=== PATIENT | female | born 1985 | race African-American/Black ===

== ENCOUNTER 2016-10-15 10:03 | Emergency (ER) | payer BC, MEDICAID ==
[2016-10-15 10:18] VITALS: BP 117/71
--- NOTE | 2016-10-15 10:48 | ER Document Report ---
HPI - HPI Pain Level: 3 - REPRODUCTIVE LMP: 05/29/16 Reproductive: REPORTS: : - DERM Skin Color: Normal Past Medical History - Social History Smoking Status: Never Smoker Chew tobacco use (# tins/day): No Frequency of alcohol use: None Drug Abuse: None Family History: CAD, DM, Hyperlipidemia, Hypertension, Malignancy Patient has suicidal ideation: No Patient has homicidal ideation: No - Past Medical History Cardiac Medical History: Denies: Hx Congestive Heart Failure, Hx Heart Attack, Hx Hypertension Pulmonary Medical History: Reports: Hx Pneumonia - long time ago Denies: Hx Asthma, Hx Bronchitis, Hx COPD, Hx Tuberculosis Neurological Medical History: Reports: Hx Migraine. Denies: Hx Seizures Renal/ Medical History: Denies: Hx End Stage Renal Disease, Hx Kidney Stones GI Medical History: Reports: Hx Gastroesophageal Reflux Disease. Denies: Hx Cirrhosis, Hx Ulcer Musculoskeltal Medical History: Denies Hx Arthritis, Denies Hx Multiple Sclerosis Psychiatric Medical History: Denies: Hx Bipolar Disorder, Hx Depression, Hx Schizophrenia - Immunizations Hx Diphtheria, Pertussis, Tetanus Vaccination: Yes Hx Pneumococcal Vaccination: 08/07/16 Vertical Provider Document - INFECTION CONTROL TRAVEL OUTSIDE OF THE [place] IN LAST 30 DAYS: No - RESPIRATORY O2 Sat by Pulse Oximetry: 97 Course - Vital Signs Vital signs: Temp Pulse Resp BP Pulse Ox 98.9 F 96 16 117/71 97 10/15/16 10:16 10/15/16 10:16 10/15/16 10:16 10/15/16 10:16 10/15/16 10:16
--- NOTE | 2016-10-15 11:37 | ER Document Report ---
ED ENT - General Chief Complaint: Sore Throat Stated Complaint: COLD SYMPTOMS Information source: Patient, Friend TRAVEL OUTSIDE OF THE [place] IN LAST 30 DAYS: No - HPI Patient complains to provider of: Throat problem Onset: Last week Onset/Duration: Gradual Context: Allergies. denies: Injury, Recent Illness, Travel Location of pain: Sinus, Throat Associated symptoms: None - Related Data Allergies/Adverse Reactions: No Known Allergies Allergy (Verified 10/15/16 10:14) Past Medical History - Social History Smoking Status: Never Smoker Chew tobacco use (# tins/day): No Frequency of alcohol use: None Drug Abuse: None Family History: CAD, DM, Hyperlipidemia, Hypertension, Malignancy Patient has suicidal ideation: No Patient has homicidal ideation: No - Past Medical History Cardiac Medical History: Denies: Hx Congestive Heart Failure, Hx Heart Attack, Hx Hypertension Pulmonary Medical History: Reports: Hx Pneumonia - long time ago Denies: Hx Asthma, Hx Bronchitis, Hx COPD, Hx Tuberculosis Neurological Medical History: Reports: Hx Migraine. Denies: Hx Seizures Renal/ Medical History: Denies: Hx End Stage Renal Disease, Hx Kidney Stones GI Medical History: Reports: Hx Gastroesophageal Reflux Disease. Denies: Hx Cirrhosis, Hx Ulcer Musculoskeltal Medical History: Denies Hx Arthritis, Denies Hx Multiple Sclerosis Psychiatric Medical History: Denies: Hx Bipolar Disorder, Hx Depression, Hx Schizophrenia - Immunizations Hx Diphtheria, Pertussis, Tetanus Vaccination: Yes Hx Pneumococcal Vaccination: 08/07/16 Review of Systems - Review of Systems Constitutional: No symptoms reported EENT: Sinus pressure, Sinus discharge, Throat pain Cardiovascular: No symptoms reported Respiratory: No symptoms reported Gastrointestinal: No symptoms reported Genitourinary: No symptoms reported Female Genitourinary: No symptoms reported Musculoskeletal: No symptoms reported Skin: No symptoms reported Hematologic/Lymphatic: No symptoms reported Neurological/Psychological: No symptoms reported Physical Exam - Vital signs Vitals: Temp Pulse Resp BP Pulse Ox 98.9 F 96 16 117/71 97 10/15/16 10:16 10/15/16 10:16 10/15/16 10:16 10/15/16 10:16 10/15/16 10:16 Interpretation: Normal - General General appearance: Appears well, Alert - HEENT Head: Normocephalic, Atraumatic Eyes: Normal Pupils: PERRL Sinus: Mastoid, Maxillary Nasal: Purulent discharge - Respiratory Respiratory status: No respiratory distress Chest status: Nontender Breath sounds: Normal Chest palpation: Normal - Cardiovascular Rhythm: Regular Heart sounds: Normal auscultation Murmur: No - Abdominal Inspection: Normal Distension: No distension Bowel sounds: Normal Tenderness: Nontender Organomegaly: No organomegaly - Back Back: Normal, Nontender - Extremities General upper extremity: Normal inspection, Nontender, Normal color, Normal ROM , Normal temperature General lower extremity: Normal inspection, Nontender, Normal color, Normal ROM , Normal temperature, Normal weight bearing. No: Christian's sign - Neurological Neuro grossly intact: Yes Cognition: Normal Orientation: AAOx4 [place] Coma Scale Eye Opening: Spontaneous [place] Coma Scale Verbal: Oriented Cam Coma Scale Motor: Obeys Commands [place] Coma Scale Total: 15 Speech: Normal Motor strength normal: LUE, RUE, LLE, RLE Sensory: Normal - Psychological Associated symptoms: Normal affect, Normal mood - Skin Skin Temperature: Warm Skin Moisture: Dry Skin Color: Normal Course - Vital Signs Vital signs: Temp Pulse Resp BP Pulse Ox 98.9 F 96 16 117/71 97 10/15/16 10:16 10/15/16 10:16 10/15/16 10:16 10/15/16 10:16 10/15/16 10:48 Discharge - Discharge Clinical Impression: Pharyngitis Disposition: HOME, SELF-CARE Prescriptions: Amox Tr/Potassium Clavulanate [Augmentin 875-125 Tablet] 1 tab PO BID 10 Days
== END 2016-10-15 12:00 | disposition home or self-care (01) ==
LOC: ER 10:03
DX: J02.9 Acute pharyngitis, unspecified (principal)
CPT/HCPCS: 99282

== ENCOUNTER 2016-12-21 12:18 | Emergency (ER) | payer BC, MEDICAID ==
[2016-12-21] MEDS ORDERED: DIPHENHYDRAMINE HCL 25 MG CAPSULE PO ONE (12:25)
[2016-12-21] MEDS ORDERED: FAMOTIDINE 20 MG TABLET PO ONE (12:27)
--- NOTE | 2016-12-21 12:28 | ER Document Report ---
ED Medical Screen (RME) - General Stated Complaint: POSSIBLE ALLERGIC REACTION Mode of Arrival: Ambulatory Information source: Patient Notes: Patient presents to the emergency department with concerns of allergic reaction. Patient reports she went out to eat at [employer] and her face started swelling. Denies shortness of breath. Denies trouble swallowing. No apparent distress. Patient reports her face is not as swollen. Denies past medical history of allergies. I have greeted and performed a rapid initial assessment of this patient. A comprehensive ED assessment and evaluation of the patient, analysis of test results and completion of the medical decision making process will be conducted by additional ED providers. TRAVEL OUTSIDE OF THE [place] IN LAST 30 DAYS: No - Related Data Allergies/Adverse Reactions: No Known Allergies Allergy (Verified 12/21/16 12:25) Past Medical History - Past Medical History Cardiac Medical History: Denies: Hx Congestive Heart Failure, Hx Heart Attack, Hx Hypertension Pulmonary Medical History: Reports: Hx Pneumonia - long time ago Denies: Hx Asthma, Hx Bronchitis, Hx COPD, Hx Tuberculosis Neurological Medical History: Reports: Hx Migraine. Denies: Hx Seizures Renal/ Medical History: Denies: Hx End Stage Renal Disease, Hx Kidney Stones GI Medical History: Reports: Hx Gastroesophageal Reflux Disease. Denies: Hx Cirrhosis, Hx Ulcer Musculoskeltal Medical History: Denies Hx Arthritis, Denies Hx Multiple Sclerosis Psychiatric Medical History: Denies: Hx Bipolar Disorder, Hx Depression, Hx Schizophrenia - Immunizations Hx Diphtheria, Pertussis, Tetanus Vaccination: Yes
--- NOTE | 2016-12-21 12:38 | ER Document Report ---
ED Allergic Reaction - General Chief Complaint: Nausea/Vomiting Stated Complaint: POSSIBLE ALLERGIC REACTION Mode of Arrival: Ambulatory Notes: The patient is a 31-year-old female, 7 months , presents after she was eating food from [employer] and had nausea and vomiting. She also fell like her upper lip was swelling, but this resolved quickly. She is having frequent nausea and vomiting with this and is prescribed Phenergan and Zofran. She denies difficulty swallowing, shortness of breath, rash, wheezing, throat swelling, abdominal pain, leakage of fluids, vaginal bleeding or fevers. TRAVEL OUTSIDE OF THE [place] IN LAST 30 DAYS: No - Related Data Allergies/Adverse Reactions: No Known Allergies Allergy (Verified 12/21/16 12:25) Past Medical History - General Information source: Patient - Social History Smoking Status: Never Smoker Chew tobacco use (# tins/day): No Frequency of alcohol use: None Drug Abuse: None Family History: CAD, DM, Hyperlipidemia, Hypertension, Malignancy Patient has suicidal ideation: No Patient has homicidal ideation: No - Past Medical History Cardiac Medical History: Denies: Hx Congestive Heart Failure, Hx Heart Attack, Hx Hypertension Pulmonary Medical History: Reports: Hx Pneumonia - long time ago Denies: Hx Asthma, Hx Bronchitis, Hx COPD, Hx Tuberculosis Neurological Medical History: Reports: Hx Migraine. Denies: Hx Seizures Renal/ Medical History: Denies: Hx End Stage Renal Disease, Hx Kidney Stones, Hx Peritoneal Dialysis GI Medical History: Reports: Hx Gastroesophageal Reflux Disease. Denies: Hx Cirrhosis, Hx Ulcer Musculoskeltal Medical History: Denies Hx Arthritis, Denies Hx Multiple Sclerosis Psychiatric Medical History: Denies: Hx Bipolar Disorder, Hx Depression, Hx Schizophrenia - Immunizations Hx Diphtheria, Pertussis, Tetanus Vaccination: Yes Hx Pneumococcal Vaccination: 08/07/16 Review of Systems - Review of Systems Notes: REVIEW OF SYSTEMS: CONSTITUTIONAL: -fevers, -chills EENT: -eye pain, -difficulty swallowing, -nasal congestion CARDIOVASCULAR:-chest pain, -syncope. RESPIRATORY: -cough, -SOB GASTROINTESTINAL: -abdominal pain, +nausea, -vomiting, -diarrhea GENITOURINARY: -dysuria, -hematuria MUSCULOSKELETAL: -back pain, -neck pain SKIN: -rash or skin lesions. HEMATOLOGIC: -easy bruising or bleeding. LYMPHATIC: -swollen, enlarged glands. NEUROLOGICAL: -altered mental status or loss of consciousness, -headache, - neurologic symptoms PSYCHIATRIC: -anxiety, -depression. ALL OTHER SYSTEMS REVIEWED AND NEGATIVE. Physical Exam - Vital signs Vitals: Temp Pulse Resp BP Pulse Ox 98.7 F 74 20 130/74 H 100 12/21/16 13:06 12/21/16 13:06 12/21/16 13:06 12/21/16 13:06 12/21/16 13:06 - Notes Notes: PHYSICAL EXAMINATION: GENERAL: Well-appearing, well-nourished and in no acute distress. HEAD: Atraumatic, normocephalic. EYES: Pupils equal round and reactive to light, extraocular movements intact, sclera anicteric, conjunctiva are normal. ENT: nares patent, oropharynx clear without exudates. Moist mucous membranes. NECK: Normal range of motion, supple without lymphadenopathy LUNGS: Breath sounds clear to auscultation bilaterally and equal. No wheezes rales or rhonchi. HEART: Regular rate and rhythm without murmurs ABDOMEN: Soft, nontender, normoactive bowel sounds. Gravid. No guarding, no rebound. No masses appreciated. EXTREMITIES: Normal range of motion, no pitting or edema. No cyanosis. NEUROLOGICAL: Cranial nerves grossly intact. Normal speech, normal gait. Normal sensory, motor, and reflex exams. PSYCH: Normal mood, normal affect. SKIN: Warm, Dry, normal turgor, no rashes or lesions noted. Course - Re-evaluation Re-evalutation: Patient with no throat swelling, oral involvement, wheezing, shortness of breath , rash or abdominal pain to suggest anaphylaxis. Patient no longer feeling nauseous and says she will take her Phenergan at home. No complications with her at this time. Given return precautions and she understands. - Vital Signs Vital signs: Temp Pulse Resp BP Pulse Ox 98.7 F 74 20 130/74 H 100 12/21/16 13:06 12/21/16 13:06 12/21/16 13:06 12/21/16 13:06 12/21/16 13:06 Discharge - Discharge Clinical Impression: Nausea and vomiting Qualifiers: Vomiting type: unspecified Vomiting Intractability: non-intractable Qualified Code(s): R11.2 - Nausea with vomiting, unspecified Allergic reaction Qualifiers: Encounter type: initial encounter Qualified Code(s): T78.40XA - Allergy, unspecified, initial encounter Condition: Good Disposition: HOME, SELF-CARE Additional Instructions: ACUTE ALLERGIC REACTION: Your symptoms are due to an allergic reaction. Allergy can cause hives, swelling of the hands, feet, and face, hoarseness, and difficulty swallowing or breathing. It may be due to exposure to medication, animal dander, foods, infection, or insect bites. Medication is a common cause, even when prior use of this same medication caused no problems. Acute treatment may include adrenalin and antihistamines. Usually, the specific allergic agent can't be identified unless repeated episodes occur. Home treatment includes the following: (1) Stop any suspicious medications. This will be discussed with you. (2) Oral antihistamines for the next four to five days. Example, diphenhydramine (Benadryl) every four hours. (3) You may also use cimetidine (Tagamet), ranitidine (Zantac), or famotidine ( Pepcid) every four hours if diphenhydramine is not controlling itching and hives. (4) Avoid aspirin until the hives completely disappear. (5) Avoid hot baths or showers until the hives are completely gone. Call the doctor if faintness, difficulty swallowing, tightness in the chest , or wheezing occurs. STEROID MEDICATION: You have been given a medicine of the cortisone/steroid class. This medication is used to control inflammation or allergy. It is usually only given for a short period of time, until the acute process subsides. There are usually no side effects from short-term use of cortisone-like medications. Some persons feel an increased sense of well-being and are not sleepy at bedtime. Long-term use of cortisone medications is best avoided, unless required for a severe condition. If your condition does not remit, or relapses after the course of corticosteroid medication, you should consult your physician. ACID-SUPPRESSING MEDICATION: You have a prescription for medicine which reduces the stomach's secretion of acid. Examples include Zantac, Tagament, and Pepcid. These drugs are often used to allow healing of ulcers or esophagitis. They may be needed to prevent recurrence of ulcers in some patients, or to prevent damage from acid reflux in the esophagus. Take all medication as prescribed, even after the pain is gone. Regular antacids may be added as needed if you have symptoms while taking this medicine. These medications sometimes are prescribed for allergic reactions because they have anti-histaminic effects and relieve the rash and itching of the reaction. There are usually no side effects from this medication. But, in rare cases and particularly in the elderly, serious problems can occur. Contact your doctor if there is fever, rash, hallucinations, confusion, or unusual bruising. Contact your doctor at once if you develop lightheadedness, black or bloody stool, or bloody vomitus. ANTIHISTAMINES: An antihistamine has been given and/or prescribed to control your symptoms. Antihistamines are used for many reasons, including itching, watering eyes, runny nose, allergic swelling, hives, and insect stings. Antihistamines may cause drowsiness, especially with the first dose. Do not operate machinery or drive while under the effects of the medication. Other common side effects include dry mouth and eyes. In older persons, antihistamines can occasionally cause urinary retention, constipation, and trouble focusing the eyes. Do not combine the medication with alcohol, or with any other medication without talking to your doctor. USE OF DIPHENHYDRAMINE: The use of diphenhydramine (Benadryl) has been recommended to control allergic symptoms. The 25 mg strength is available over- the-counter, as well as the elixir. This antihistamine is used for many symptoms. It's useful for itching, watering eyes and nose, allergic swelling, hives, and insect stings. The medication can be repeated four times daily. Age Elixir (12.5 mg/tsp) 25 mg pill 2-3 yr 1/2 tsp 4-8 yr 1 tsp 9-14 yr 2 tsp one tab adult 1-2 tabs Antihistamines may cause drowsiness, especially with the first dose. Do not operate machinery or drive while under the effects of the medication. Do not combine the medication with alcohol, or with any other medication without talking to your doctor. FOLLOW-UP CARE: If you have been referred to a physician for follow-up care, call the physician s office for an appointment as you were instructed or within the next two days. If you experience worsening or a significant change in your symptoms, notify the physician immediately or return to the Emergency Department at any time for re-evaluation.
[2016-12-21 13:10] VITALS: BP 130/74
== END 2016-12-21 13:08 | disposition home or self-care (01) ==
LOC: ER 12:18
DX: O9A.219 Injury, poisoning and certain other consequences of external causes complicating pregnancy, unspecified trimester (principal); T78.40XA Allergy, unspecified, initial encounter; X58.XXXA Exposure to other specified factors, initial encounter; O21.9 Vomiting of pregnancy, unspecified; Z3A.00 Weeks of gestation of pregnancy not specified; Z79.899 Other long term (current) drug therapy
CPT/HCPCS: 99283

== ENCOUNTER 2017-01-21 16:18 | Outpatient (CLI) | payer BC, MEDICAID ==
[2017-01-21] MEDS ORDERED: DEXTROSE 5%-LACTATED RINGERS 1,000 ML IV PRN (17:04)
[2017-01-21 17:13] LABS: APPEARANCE,URINE SLIGHTLY-CLOUDY; BILIRUBIN,URINE NEGATIVE (NEGATIVE); GLUCOSE, URINE NEGATIVE (NEGATIVE); KETONES,URINE NEGATIVE (NEGATIVE); LEUKOCYTE ESTERASE,URINE SMALL (NEGATIVE); NITRITE,URINE NEGATIVE (NEGATIVE); PROTEIN,URINE NEGATIVE (NEGATIVE); URINE SPECIFIC GRAVITY 1.004; UROBILINOGEN,URINE NEGATIVE mg/dL (<2.0)
[2017-01-21 17:26] LABS: URINE BARBITURATES SCREEN NEGATIVE; URINE METHADONE SCREEN NEGATIVE; URINE OPIATES LOW NEGATIVE; URINE PHENCYCLIDINE SCREEN NEGATIVE
--- NOTE | 2017-01-21 18:01 | L&D Current Admission ---
Current Admit Datetime Report Generated by CPN: 01/21/2017 18:00 ADMISSION INFORMATION Chief Complaint: Nausea; Vomiting (01/21/2017 17:20:Lesia Charly, JOSE CRUZ)
--- NOTE | 2017-01-21 18:02 | L&D General Admission ---
General Admit Datetime Report Generated by CPN: 01/21/2017 18:00 INFORMATION Patient Age: 31 (08/04/2016 16:06:QS system process) EDC: 03/05/2017 00:00 (01/21/2017 17:31:Lesia Parks RN) : 2 (01/21/2017 17:31:Lesia Parks RN) Para: 0 (01/21/2017 17:31:Lesia Parks RN) Term: 0 (01/21/2017 17:31:Lesia Parks RN) : 0 (01/21/2017 17:31:Lesia Parks RN) Spontaneous Abortions: 1 (01/21/2017 17:31:Lesia Parks RN) Induced Abortions: 0 (01/21/2017 17:31:Lesia Parks RN) Livin (01/21/2017 17:31:Lesia Parks RN) CARE Primary Ict Project Manager: [employer] (01/21/2017 17:31:Lesia Parks, RN) Adequate Care: Yes (01/21/2017 17:31:Lesia Parks, RN) Height (in): 63 (01/21/2017 17:00:QS system process) ALLERGIES Medication Allergy: No (01/21/2017 17:31:Lesia Parks RN) Medication Allergies: No Known Allergies (01/21/2017) (01/21/2017 17:00:QS system process) Latex Allergy: No Latex Allergies (01/21/2017 17:31:Lesia Parks RN) COMMUNICATION Primary Language: Hebrew (01/21/2017 17:31:Lesia Parks RN) Medical Tx Preferred Language: Hebrew (01/21/2017 17:31:Lesia Parks RN) DEMOGRAPHICS Address: [address] [place] [id number] (08/04/2016 16:06:QS system process) Zipcode: [address] (08/04/2016 16:06:QS system process) Home (08/04/2016 16:06:QS system process) SSN: [id number] (08/04/2016 16:06:QS system process) Next of Kin Name: SMITHA DUGAN (08/04/2016 16:06:QS system process) Next of Kin (08/04/2016 16:06:QS system process) Next of Kin Relationship: SPO (01/21/2017 16:18:QS system process) Date of : 1985 (08/04/2016 16:06:QS system process) Marital Status: (01/21/2017 16:18:QS system process) Sex: Female (08/04/2016 16:06:QS system process) Race: (08/04/2016 16:06:QS system process) Ethnicity: Non- or (08/04/2016 16:06:QS system process) Christianity: None (01/21/2017 16:18:QS system process) DRUG AND ALCOHOL USE Alcohol: No (01/21/2017 17:31:Lesia Parks RN) Cigarettes: Never Smoker. [id number] (01/21/2017 17:31:Lesia Parks RN) Marijuana: No (01/21/2017 17:31:Lesia Parks RN) Cocaine: No (01/21/2017 17:31:Lesia Parks RN) Other Illicit Drugs: No (01/21/2017 17:31:Lesia Parks RN) VACCINE HISTORY Influenza Vaccine: Yes (01/21/2017 17:31:Lesia Parks RN) Influenza Date: 08/2016 (01/21/2017 17:31:Lesia Parks RN) Pneumococcal Vaccine: No (01/21/2017 17:31:Lesia Parks RN) Tetanus Vaccine: Yes (01/21/2017 17:31:Lesia Parks RN) Tetanus Date: 2004 (01/21/2017 17:31:Lesia Parks RN) Tdap Vaccine: Yes (01/21/2017 17:31:Lesia Parks RN) Tdap Date: 2004 (01/21/2017 17:31:Lesia Parks RN) Hepatitis B Vaccine: Yes (01/21/2017 17:31:Lesia Parks RN) Hepatitis B Vaccine Date : 2004 (01/21/2017 17:31:Lesia Parks RN) Continuing Education Specialist: [facility] (01/21/2017 17:31:Lesia Parks RN) Feeding Preference: Breast (01/21/2017 17:31:Lesia Parks RN) Benefit of Breast Feed Discussed: Yes (01/21/2017 17:31:Lesia Parks RN) Circumcision: N/A (01/21/2017 17:31:Lesia Parks RN) Classes Attended: No (01/21/2017 17:31:Lesia Parks RN) Tubal Ligation: No (01/21/2017 17:31:Lesia Parks RN) Consent: N/A (01/21/2017 17:31:Lesia Parks RN) Pain Management Plans: Epidural (01/21/2017 17:31:Lesia Parks RN) Plans for Labor and Delivery: Other, Specify (01/21/2017 17:31:Lesia Parks RN) Other Labor and Delivery Plans: Delay cord cutting (01/21/2017 17:31:Lesia Parks RN) Support Person: Smitha Dugan (01/21/2017 17:31:Lesia Parks RN) Support Person Relationship: (01/21/2017 17:31:Lesia Parks RN) Cultural/Spritual Practice: No (01/21/2017 17:31:Lesia Parks RN) Spir/Cult Dietary Needs: No (01/21/2017 17:31:Lesia Parks RN) LIVING SITUATION/DISCHARGE PLAN Living Arrangements: House (01/21/2017 17:31:Lesia Parks RN) Adequate Access to:: Electric; Heat; Refrigeration; Plumbing/Running water; Phone (01/21/2017 17:31:Lesia Parks RN) WIC Program: No (01/21/2017 17:31:Lesia Parks RN) Discharge Butcher Person: Smitha Dugan (01/21/2017 17:31:Lesia Parks RN) Person to Help after Discharge: (01/21/2017 17:31:Lesia Parks RN) Currently Using Commun Resources: No (01/21/2017 17:31:Lesia Parks RN) Specify Current Resource Used: Medicaid (01/21/2017 17:31:Lesia Parks RN) Outside Agency/Top Cutter: [facility] (01/21/2017 17:31:Lesia Parks RN) Car Seat for Discharge: Yes (01/21/2017 17:31:Lesia Parks RN) Adoption Requested: No (01/21/2017 17:31:Lesia Parks RN) Pt Contact w/infant Post : N/A (01/21/2017 17:31:Lesia Parks RN) LABS Hemoglobin: 11.7 L (08/20/2016 14:42:QS system process) Hematocrit: 35.2 L (08/20/2016 14:42:QS system process) MCV: 87 (08/20/2016 14:42:QS system process) OB/PREVIOUS HISTORY Previous Procedures: None (01/21/2017 17:31:Lesia Parks RN) Current Procedures: Ultrasound; NST (01/21/2017 17:31:Lesia Parks RN) History of Previous : No (01/21/2017 17:31:Lesia Parks RN) History of Gestational Diabetes: No (01/21/2017 17:31:Lesia Parks RN) History of PIH: No (01/21/2017 17:31:Lesia Parks RN) History of Incompetent Cervix: No (01/21/2017 17:31:Lesia Parks RN) History of Placenta Previa/Abrup: No (01/21/2017 17:31:Lesia Parks RN) History of Macrosomia: No (01/21/2017 17:31:Lesia Parsk RN) History of IUGR: No (01/21/2017 17:31:Lesia Parks RN) History of Hemorrhage: No (01/21/2017 17:31:Lesia Parks RN) History of Loss/Stillborn: No (01/21/2017 17:31:Lesia Parks RN) History of : No (01/21/2017 17:31:Lesia Parks RN) History of D (Rh) Sensitization: No (01/21/2017 17:31:Lesia Parks RN) History Recurrent Loss/Stillborn: No (01/21/2017 17:31:Lesia Parks RN) History Depression/PP Depression: No (01/21/2017 17:31:Lesia Parks RN) History of Uterine Anomaly/MARCELO: No (01/21/2017 17:31:Lesia Parks RN) History of Infertility: No (01/21/2017 17:31:Lesia Parks RN) History of ART Treatment: No (01/21/2017 17:31:Lesia Parks RN) History of MARCELO: No (01/21/2017 17:31:Lesia Parks RN) Comments Obstetrical History: G1 - SAB 2014 G2 - Current (01/21/2017 17:31:Lesia Parks RN) MEDICAL HISTORY Med Hx Diabetes: No (01/21/2017 17:31:Lesia Parks RN) Med Hx Hypertension: No (01/21/2017 17:31:Lesia Parks RN) Med Hx Heart Disease: No (01/21/2017 17:31:Lesia Parks RN) Med Hx Autoimmune Disorder: No (01/21/2017 17:31:Lesia Parks RN) Med Hx Kidney Disease/UTI: No (01/21/2017 17:31:Lesia Parks RN) Med Hx Neurologic/Epilepsy: No (01/21/2017 17:31:Lesia Parks RN) Med Hx Psychiatric Disorders: No (01/21/2017 17:31:Lesia Parks RN) Med Hx Hepatitis/Liver Disease: No (01/21/2017 17:31:Lesia Parks RN) Med Hx Varicosities/Phlebitis: No (01/21/2017 17:31:Lesia Parks RN) Med Hx Thyroid Dysfunction: No (01/21/2017 17:31:Lesia Parks RN) Med Hx Trauma/Violence: No (01/21/2017 17:31:Lesia Parks RN) Med Hx Blood Transfusion: Yes (01/21/2017 17:31:Lesia Parks RN) Med Hx Pulmonary (Asthma,TB): No (01/21/2017 17:31:Lesia Parks RN) Med Hx Breast: No (01/21/2017 17:31:Lesia Parks RN) Med Hx COOKER MECHANIC Surgery: No (01/21/2017 17:31:Lesia Parks RN) Med Hx Hospitalization/Surgery: Yes (01/21/2017 17:31:Lesia Parks RN) Med Hx Anesthetic Complications: No (01/21/2017 17:31:Lesia Parks RN) Med Hx Abnormal Pap Smear: No (01/21/2017 17:31:Lesia Parks RN) Other Medical Diseases: Yes (01/21/2017 17:31:Lesia Parks RN) Med Hx Significant Family Hx: No (01/21/2017 17:31:Lesia Parks RN) Details of Med/Surg Hx: Meningitis, Endometriosis, Pneumonia (01/21/2017 17:31:Lesia Parks RN) INFECTIOUS HISTORY Inf Hx Gonorrhea: No (01/21/2017 17:31:Lesia Parks RN) Inf Hx Chlamydia: No (01/21/2017 17:31:Lesia Parks RN) Inf Hx Syphilis: No (01/21/2017 17:31:Lesia Parks RN) Inf Hx HIV/AIDS: No (01/21/2017 17:31:Lesia Parks RN) Inf Hx Human Papilloma Virus: No (01/21/2017 17:31:Lesia Parks RN) Inf Hx Pt/Partner Genital Herpes: No (01/21/2017 17:31:Lesia Parks RN) Inf Hx Tuberculosis/Exposure: No (01/21/2017 17:31:Lesia Parks RN) Inf Hx Hepatitis B,C: No (01/21/2017 17:31:Lesia Parks RN) Inf Hx Rash or Viral Illness: No (01/21/2017 17:31:Lesia Parks RN) GENETIC HISTORY Gen Hx Age >=35 at MARIA E: No (01/21/2017 17:31:Lesia Parks RN) Gen Hx Thalassemia: No (01/21/2017 17:31:Lesia Parks RN) Gen Hx Congenital Heart Defect: No (01/21/2017 17:31:Lesia Parks RN) Gen Hx Neural Tube Defect: No (01/21/2017 17:31:Lesia Parks RN) Gen Hx Down's Syndrome: No (01/21/2017 17:31:Lesia Parks RN) Gen Hx Silvino-Sachs: No (01/21/2017 17:31:Lesia Parks RN) Gen Hx Natalie: No (01/21/2017 17:31:Lesia Parks RN) Gen Hx Familial Dysautonomia: No (01/21/2017 17:31:Lesia Parks RN) Gen Hx Sickle Cell Disease/Trait: Yes (01/21/2017 17:31:Lesia Parks RN) Gen Hx Hemophilia/Blood Disorder: No (01/21/2017 17:31:Lesia Parks RN) Gen Hx Muscular Dystrophy: No (01/21/2017 17:31:Lesia Parks RN) Gen Hx Cystic Fibrosis: No (01/21/2017 17:31:Lesia Parks RN) Gen Hx Huntingtons Chorea: No (01/21/2017 17:31:Lesia Parks RN) Gen Hx Mental Retardation/Autism: No (01/21/2017 17:31:Lesia Parks RN) Gen Hx Tested for Fragile X: No (01/21/2017 17:31:Lesia Parks RN) Gen Hx Other Inher/Chromosomal: No (01/21/2017 17:31:Lesia Parks RN) Gen Hx Maternal Metabolic DO: No (01/21/2017 17:31:Lesia Parks RN) Gen Hx Pt Father or FOB Defect: No (01/21/2017 17:31:Lesia Parks RN) Gen Hx Other Genetic History: No (01/21/2017 17:31:Lesia Parks RN) Gen Hx Drugs/Meds since LMP: No (01/21/2017 17:31:Lesai Parks RN) Details of Genetic History: Trait for sickle cell in family (01/21/2017 17:31:Lesia Parks RN)
[2017-01-21] MEDS ORDERED: FAMOTIDINE INJ/PF 20 MG/2 ML SDV IV ONE ×2 (18:08→18:12)
--- NOTE | 2017-01-21 18:39 | Non Stress Test Report ---
Non Stress Test Datetime Report Generated by CPN: 01/21/2017 18:38 DEMOGRAPHIC EGA NST: 33.6 INDICATION Indication for Study: Ordered by Provider Indication for Study (NST) Other: LC MONITORING Monitor Explained: Monitor Explained; Test Explained; Patient Verbalized Understanding Time on Monitor: 01/21/2017 16:43 Time off Monitor: 01/21/2017 18:31 NST Duration: 108 NST INTERVENTIONS NST Interventions: PO Hydration; IV Fluids; Reposition Patient Physician Notified NST: A. Emmel CNM BABY A: [id number] BABY A Movement : Present Contraction Frequency : none FHR Baseline : 130 Accelerations : 15X15 Decelerations : None Variability : Moderate 6-25bpm NST Review: Meets Criteria for Reactive NST NST Review and Verified By : Sandy Ferrer RNC NST Results: Reactive NST REPORT Report Trigger: Send Report
--- NOTE | 2017-01-21 20:49 | L&D Discharge Summary ---
OB Discharge Summary Datetime Report Generated by CPN: 01/21/2017 20:49 DISCHARGE DIAGNOSIS Diagnosis/Symptoms: Other Diagnoses/Symptoms Other: GERD Treatment/Procedures Other: Pepcid 20 mg, 1L D5LR Parity: 0 DIET/ACTIVITY/RESTRICTIONS Diet: Regular Activity: Normal Activity TEACHING/INSTRUCTIONS/REFERRALS Instructions Given To: Patient/ Instructions Understood: Patient Verbalized Understanding; Support Person Verbalized Understanding Referrals: None Educational Materials- Other: Kick Counts Dehydration DISCHARGE INFORMATION Discharged AMA: No Discharge Date/Time: 01/21/2017 18:45 Discharged To: Home Discharge Provider Name: A. Emmel CNM Accompanied By: Discharge Method: Ambulatory Condition: Stable FOLLOW UP INFORMATION Follow Up With: [facility] Follow Up On: 1 Week Follow Up Phone Number: [facility] - GENERAL INSTR-CALL PROVIDER IF: Contractions: Regular painful contractions every 5 minutes or less for one hour. Time your contractions from the beginning of one to the beginning of the next Pressure: Pressure in your vagina or lower abdomen that may feel like the baby is pushing down Gush of Fluid/Blood: Gush of fluid or blood from your vagina (it is normal to have spotting after vaginal exam or intercourse) Decreased Movement: Your baby is not moving as much as usual- 4 movements in 1 hour after drinking and resting on side Temperature: Temperature greater than 100.0(F) orally
--- NOTE | 2017-01-21 22:47 | Antepartum Discharge Summary ---
Antepartum DC Datetime Report Generated by CPN: 01/21/2017 22:45 DIET/ACTIVITY/RESTRICTIONS Diet: Regular (01/21/2017 18:45:Lesia Broman, RN) Activity: Normal Activity (01/21/2017 18:45:Lesia Broman, RN) TEACHING/INSTRUCTIONS/REFERRALS Instructions Given To: Patient/ (01/21/2017 18:45:Lesia Broman, RN) Instructions Understood: Patient Verbalized Understanding; Support Person Verbalized Understanding (01/21/2017 18:45:Lesia Broman, RN) Referrals: None (01/21/2017 18:45:Lesia Parks RN) Educational Materials- Other: Kick Counts Dehydration (01/21/2017 18:45:Lesia Parks RN) DISCHARGE INFORMATION Discharged AMA: No (01/21/2017 18:45:Lesia Parks RN) Discharge Date/Time: 01/21/2017 18:45 (01/21/2017 18:45:Lesia Parks RN) Discharged To: Home (01/21/2017 18:45:Lesia Parks RN) Discharge Provider Name: Karolina Tidwell CNM (01/21/2017 18:45:Lesia Parks RN) Accompanied By: (01/21/2017 18:45:Lesia Parks RN) Discharge Method: Ambulatory (01/21/2017 18:45:Lesia Parks RN) Condition: Stable (01/21/2017 18:45:Lesia Parks RN) FOLLOW UP INFORMATION Follow Up With: [facility] (01/21/2017 18:45:Lesia Parks RN) Follow Up On: 1 Week (01/21/2017 18:45:Lesia Parks RN) Follow Up Phone Number: [facility] - (01/21/2017 18:45:Lesia Parks RN) GENERAL INSTR-CALL PROVIDER IF: Contractions: Regular painful contractions every 5 minutes or less for one hour. Time your contractions from the beginning of one to the beginning of the next (01/21/2017 18:45:Lesia Parks RN) Pressure: Pressure in your vagina or lower abdomen that may feel like the baby is pushing down (01/21/2017 18:45:Lesia Parks RN) Gush of Fluid/Blood: Gush of fluid or blood from your vagina (it is normal to have spotting after vaginal exam or intercourse) (01/21/2017 18:45:Lesia Parks RN) Decreased Movement: Your baby is not moving as much as usual- 4 movements in 1 hour after drinking and resting on side (01/21/2017 18:45:Lesia Parks RN) Temperature: Temperature greater than 100.0(F) orally (01/21/2017 18:45:Lesia Parks RN) Urinary Output: Decreased urinary output or dark colored urine (01/21/2017 18:45:Lesia Parks RN)
--- NOTE | 2017-01-21 22:47 | L&D Current Admission ---
Current Admit Datetime Report Generated by CPN: 01/21/2017 22:45 ADMISSION INFORMATION Chief Complaint: Nausea; Vomiting (01/21/2017 17:20:Lesia Parks, JOSE CRUZ)
--- NOTE | 2017-01-21 22:47 | L&D General Admission ---
General Admit Datetime Report Generated by CPN: 01/21/2017 22:45 INFORMATION Patient Age: 31 (08/04/2016 16:06:QS system process) EDC: 03/05/2017 00:00 (01/21/2017 17:31:Lesia Parks RN) : 2 (01/21/2017 17:31:Lesia Parks RN) Para: 0 (01/21/2017 17:31:Lesia Parks RN) Term: 0 (01/21/2017 17:31:Lesia Parks RN) : 0 (01/21/2017 17:31:Lesia Parks RN) Spontaneous Abortions: 1 (01/21/2017 17:31:Lesia Parks RN) Induced Abortions: 0 (01/21/2017 17:31:Lesia Parks RN) Livin (01/21/2017 17:31:Lesia Parks RN) CARE Primary Curriculum And Assessment Coordinator: [facility] (01/21/2017 17:31:Lesia Parks RN) Adequate Care: Yes (01/21/2017 17:31:Lesia Parks RN) Height (in): 63 (01/21/2017 17:00:QS system process) Height (in): 63 (08/06/2016 12:19:QS system process) Height (in): 63 (08/04/2016 16:27:QS system process) ALLERGIES Medication Allergy: No (01/21/2017 17:31:Lesia Parks RN) Medication Allergies: No Known Allergies (01/21/2017) (01/21/2017 17:00:QS system process) Medication Allergies: No Known Allergies (12/21/2016) (01/21/2017 16:18:QS system process) Medication Allergies: No Known Allergies (07/28/2016) (08/04/2016 16:06:QS system process) Latex Allergy: No Latex Allergies (01/21/2017 17:31:Lesia Parks RN) COMMUNICATION Primary Language: Vietnamese (01/21/2017 17:31:Lesia Parks RN) Medical Tx Preferred Language: Vietnamese (01/21/2017 17:31:Lesia Parks RN) DEMOGRAPHICS Address: [address] [place] [id number] (08/04/2016 16:06:QS system process) Zipcode: [id number] (08/04/2016 16:06:QS system process) Home (08/04/2016 16:06:QS system process) SSN: [id number] (08/04/2016 16:06:QS system process) Next of Kin Name: SMITHA DUGAN (08/04/2016 16:06:QS system process) Next of Kin (08/04/2016 16:06:QS system process) Next of Kin Relationship: SPO (01/21/2017 16:18:QS system process) Next of Kin Relationship: OR (08/04/2016 16:06:QS system process) Date of : 1985 (08/04/2016 16:06:QS system process) Marital Status: (01/21/2017 16:18:QS system process) Marital Status: Single (08/04/2016 16:06:QS system process) Sex: Female (08/04/2016 16:06:QS system process) Race: (08/04/2016 16:06:QS system process) Ethnicity: Non- or (08/04/2016 16:06:QS system process) Samaritan: None (01/21/2017 16:18:QS system process) Samaritan: Other (08/04/2016 16:06:QS system process) DRUG AND ALCOHOL USE Alcohol: No (01/21/2017 17:31:Lesia Parks RN) Cigarettes: Never Smoker. [id number] (01/21/2017 17:31:Lesia Parks RN) Marijuana: No (01/21/2017 17:31:Lesia Parks RN) Cocaine: No (01/21/2017 17:31:Lesia Parks RN) Other Illicit Drugs: No (01/21/2017 17:31:Lesia Parks RN) VACCINE HISTORY Influenza Vaccine: Yes (01/21/2017 17:31:Lesia Parks RN) Influenza Date: 08/2016 (01/21/2017 17:31:Lesia Parks RN) Pneumococcal Vaccine: No (01/21/2017 17:31:Lesia Parks RN) Tetanus Vaccine: Yes (01/21/2017 17:31:Lesia Parks RN) Tetanus Date: 2004 (01/21/2017 17:31:Lesia Parks RN) Tdap Vaccine: Yes (01/21/2017 17:31:Lesia Parks RN) Tdap Date: 2004 (01/21/2017 17:31:Lesia Parks RN) Hepatitis B Vaccine: Yes (01/21/2017 17:31:Lesia Parks RN) Hepatitis B Vaccine Date : 2004 (01/21/2017 17:31:Lesia Parks RN) Can [facility]: [facility] (01/21/2017 17:31:Lesia Parks RN) Feeding Preference: Breast (01/21/2017 17:31:Lesia Parks RN) Benefit of Breast Feed Discussed: Yes (01/21/2017 17:31:Lesia Parks RN) Circumcision: N/A (01/21/2017 17:31:Lesia Parks RN) Classes Attended: No (01/21/2017 17:31:Lesia Parks RN) Tubal Ligation: No (01/21/2017 17:31:Lesia Parks RN) Tubal Authorization Signed: N/A (01/21/2017 17:31:YOLETTE Galaviz) Consent: N/A (01/21/2017 17:31:Lesia Parks RN) Consent Signed: N/A (01/21/2017 17:31:YOLETTE Galaviz) Pain Management Plans: Epidural (01/21/2017 17:31:Lesia Parks RN) Plans for Labor and Delivery: Other, Specify (01/21/2017 17:31:Lesia Parks RN) Other Labor and Delivery Plans: Delay cord cutting (01/21/2017 17:31:Lesia Parks RN) Support Person: Smitha Dugan (01/21/2017 17:31:Lesia Parks RN) Support Person Relationship: (01/21/2017 17:31:Lesia Parks RN) Cultural/Spritual Practice: No (01/21/2017 17:31:Lesia Parks RN) Spir/Cult Dietary Needs: No (01/21/2017 17:31:Lesia Parks RN) LIVING SITUATION/DISCHARGE PLAN Living Arrangements: House (01/21/2017 17:31:Lesia Parks RN) Adequate Access to:: Electric; Heat; Refrigeration; Plumbing/Running water; Phone (01/21/2017 17:31:Lesia Parks RN) WIC Program: No (01/21/2017 17:31:Lesia Parks RN) Discharge Sleeve Sewer Person: Smitha Ritchie (01/21/2017 17:31:Lesia Parks RN) Person to Help after Discharge: (01/21/2017 17:31:Lesia Parks RN) Currently Using Commun Resources: No (01/21/2017 17:31:Lesia Parks RN) Specify Current Resource Used: Medicaid (01/21/2017 17:31:Lesia Parks RN) Outside Agency/Liquefaction Plant Operator: Radha (01/21/2017 17:31:Lesia Parks RN) Car Seat for Discharge: Yes (01/21/2017 17:31:Lesia Parks RN) Adoption Requested: No (01/21/2017 17:31:Lesia Parks RN) Pt Contact w/infant Post : N/A (01/21/2017 17:31:Lesia Parks RN) LABS Blood Type: A Positive (01/21/2017 17:31:YOLETTE Galaviz) Antibody Screen: negative (01/21/2017 17:31:YOLETTE Galaviz) Hemoglobin: 11.7 L (08/20/2016 14:42:QS system process) Hemoglobin: 11.9 L (08/04/2016 17:35:QS system process) Hematocrit: 35.2 L (08/20/2016 14:42:QS system process) Hematocrit: 35.5 L (08/04/2016 17:35:QS system process) MCV: 87 (08/20/2016 14:42:QS system process) MCV: 87 (08/04/2016 17:35:QS system process) RPR/VDRL: Nonreactive (01/21/2017 17:31:YOLETTE Galaviz) Rubella: Immune (01/21/2017 17:31:YOLETTE Galaviz) OB/PREVIOUS HISTORY Previous Procedures: None (01/21/2017 17:31:Lesia Parks RN) Current Procedures: Ultrasound; NST (01/21/2017 17:31:Lesia Parks RN) History of Previous : No (01/21/2017 17:31:Lesia Parks RN) History of Gestational Diabetes: No (01/21/2017 17:31:Lesia Parks RN) History of PIH: No (01/21/2017 17:31:Lesia Parks RN) History of Incompetent Cervix: No (01/21/2017 17:31:Lesia Parks RN) History of Placenta Previa/Abrup: No (01/21/2017 17:31:Lesia Parks RN) History of Macrosomia: No (01/21/2017 17:31:Lesia Parks RN) History of IUGR: No (01/21/2017 17:31:Lesia Parks RN) History of Hemorrhage: No (01/21/2017 17:31:Lesia Parks RN) History of Loss/Stillborn: No (01/21/2017 17:31:Lesia Parks RN) History of : No (01/21/2017 17:31:Lesia Parks RN) History of D (Rh) Sensitization: No (01/21/2017 17:31:Lesia Parks RN) History Recurrent Loss/Stillborn: No (01/21/2017 17:31:Lesia Parks RN) History Depression/PP Depression: No (01/21/2017 17:31:Lesia Parks RN) History of Uterine Anomaly/MARCELO: No (01/21/2017 17:31:Lesia Parks RN) History of Infertility: No (01/21/2017 17:31:Lesia Parks RN) History of ART Treatment: No (01/21/2017 17:31:Lesia Parks RN) History of MARCELO: No (01/21/2017 17:31:Lesia Parks RN) Comments Obstetrical History: G1 - SAB 2014 G2 - Current (01/21/2017 17:31:Lesia Parks RN) MEDICAL HISTORY Med Hx Diabetes: No (01/21/2017 17:31:Lesia Parks RN) Med Hx Hypertension: No (01/21/2017 17:31:Lesia Parks RN) Med Hx Heart Disease: No (01/21/2017 17:31:Lesia Parks RN) Med Hx Autoimmune Disorder: No (01/21/2017 17:31:Lesia Parks RN) Med Hx Kidney Disease/UTI: No (01/21/2017 17:31:Lesia Parks RN) Med Hx Neurologic/Epilepsy: No (01/21/2017 17:31:Lesia Parks RN) Med Hx Psychiatric Disorders: No (01/21/2017 17:31:Lesia Parks RN) Med Hx Hepatitis/Liver Disease: No (01/21/2017 17:31:Lesia Parks RN) Med Hx Varicosities/Phlebitis: No (01/21/2017 17:31:Lesia Parks RN) Med Hx Thyroid Dysfunction: No (01/21/2017 17:31:Lesia Parks RN) Med Hx Trauma/Violence: No (01/21/2017 17:31:Lesia Parks RN) Med Hx Blood Transfusion: Yes (01/21/2017 17:31:Lesia Parks RN) Med Hx Pulmonary (Asthma,TB): No (01/21/2017 17:31:Lesia Parks RN) Med Hx Breast: No (01/21/2017 17:31:Lesia Parks RN) Med Hx [employer] Surgery: No (01/21/2017 17:31:Lesia Parks RN) Med Hx Hospitalization/Surgery: Yes (01/21/2017 17:31:Lesia Parks RN) Med Hx Anesthetic Complications: No (01/21/2017 17:31:Lesia Parks RN) Med Hx Abnormal Pap Smear: No (01/21/2017 17:31:Lesia Parks RN) Other Medical Diseases: Yes (01/21/2017 17:31:Lesia Parks RN) Med Hx Significant Family Hx: No (01/21/2017 17:31:Lesia Parks RN) Details of Med/Surg Hx: Meningitis, Endometriosis, Pneumonia (01/21/2017 17:31:Lesia Parks RN) INFECTIOUS HISTORY Inf Hx Gonorrhea: No (01/21/2017 17:31:Lesia Parks RN) Inf Hx Chlamydia: No (01/21/2017 17:31:Lesia Parks RN) Inf Hx Syphilis: No (01/21/2017 17:31:Lesia Parks RN) Inf Hx HIV/AIDS: No (01/21/2017 17:31:Lesia Parks RN) Inf Hx Human Papilloma Virus: No (01/21/2017 17:31:Lesia Parks RN) Inf Hx Pt/Partner Genital Herpes: No (01/21/2017 17:31:Lesia Parks RN) Inf Hx Tuberculosis/Exposure: No (01/21/2017 17:31:Lesia Parks RN) Inf Hx Hepatitis B,C: No (01/21/2017 17:31:Lesia Parks RN) Inf Hx Rash or Viral Illness: No (01/21/2017 17:31:Lesia Parks RN) GENETIC HISTORY Gen Hx Age >=35 at MARIA E: No (01/21/2017 17:31:Lesia Parks RN) Gen Hx Thalassemia: No (01/21/2017 17:31:Lesia Parks RN) Gen Hx Congenital Heart Defect: No (01/21/2017 17:31:Lesia Parks RN) Gen Hx Neural Tube Defect: No (01/21/2017 17:31:Lesia Parks RN) Gen Hx Down's Syndrome: No (01/21/2017 17:31:Lesia Parks RN) Gen Hx Silvino-Sachs: No (01/21/2017 17:31:Lesia Parks RN) Gen Hx Natalie: No (01/21/2017 17:31:Lesia Parks RN) Gen Hx Familial Dysautonomia: No (01/21/2017 17:31:Lesia Parks RN) Gen Hx Sickle Cell Disease/Trait: Yes (01/21/2017 17:31:Lesia Parks RN) Gen Hx Hemophilia/Blood Disorder: No (01/21/2017 17:31:Lesia Parks RN) Gen Hx Muscular Dystrophy: No (01/21/2017 17:31:Lesia Parks RN) Gen Hx Cystic Fibrosis: No (01/21/2017 17:31:Lesia Parks RN) Gen Hx Huntingtons Chorea: No (01/21/2017 17:31:Lesia Parks RN) Gen Hx Mental Retardation/Autism: No (01/21/2017 17:31:Lesia Parks RN) Gen Hx Tested for Fragile X: No (01/21/2017 17:31:Lesia Parks RN) Gen Hx Other Inher/Chromosomal: No (01/21/2017 17:31:Lesia Parks RN) Gen Hx Maternal Metabolic DO: No (01/21/2017 17:31:Lesia Parks RN) Gen Hx Pt Father or FOB Defect: No (01/21/2017 17:31:Lesia Parks RN) Gen Hx Other Genetic History: No (01/21/2017 17:31:Lesia Parks RN) Gen Hx Drugs/Meds since LMP: No (01/21/2017 17:31:Lesia Parks RN) Details of Genetic History: Trait for sickle cell in family (01/21/2017 17:31:Lesia Parks RN)
--- NOTE | 2017-01-21 22:47 | L&D Flow Sheet ---
LD Flowsheet Datetime Report Generated by CPN: 01/21/2017 22:45 Datetime: 01/21/2017 18:31 I/O Interventions: Up to BR (Lesia Broman, RN) Patient Care Comments: IV discontinued at this time, pt up to br to get dressed for discharge (Lesia Broman, RN) Datetime: 01/21/2017 18:30 Uterine Activity Monitor Mode: External (Lesia Broman, RN) Frequency (min): none (Lesia Broman, RN) Duration Criteria: Less than Two 120 Second Contractions (Lesia Broman, RN) Resting Tone (Palpate): Relaxed (Lesia Broman, RN) Assessment A Monitor Mode: External US (Lesia Broman, RN) Monitor Interventions for FHR: Ultrasound Adjusted (Lesia Broman, RN) FHR Baseline Rate : 130 (Lesia Broman, RN) Variability: Moderate 6-25 bpm (Lesia Broman, RN) Accelerations: 15X15 (Lesia Broman, RN) Decelerations: None (Lesia Broman, RN) Datetime: 01/21/2017 18:29 Patient Care Comments: A. Emmel CNM at bedside to speak with pt (Lesia Broman, RN) Datetime: 01/21/2017 18:22 NBP Sys/Mariaa/Mean (mmHg): 133 (QS system process) : 82 (QS system process) : 102 (QS system process) Pulse: 90 (QS system process) Communication LaborFlag: Labor (QS system process) Datetime: 01/21/2017 18:14 Medications Antiemetics/Antacids: Pepcid IV (mg) @ 20 (Lesia Broman, RN) Medication Comments: 20 mg Pepcid given per A. Emmel CNM (Lesia Broman, RN) Datetime: 01/21/2017 18:08 NBP Sys/Mariaa/Mean (mmHg): 127 (QS system process) : 78 (QS system process) : 97 (QS system process) Pulse: 88 (QS system process) Communication LaborFlag: Labor (QS system process) Datetime: 01/21/2017 18:00 Uterine Activity Monitor Mode: External (Lesia Broman, RN) Frequency (min): none (Lesia Broman, RN) Resting Tone (Palpate): Relaxed (Lesia Broman, RN) Assessment A Monitor Mode: External US (Lesia Broman, RN) FHR Baseline Rate : 125 (Lesia Broman, RN) Variability: Moderate 6-25 bpm (Lesia Broman, RN) Accelerations: None (Lesia Broman, RN) Decelerations: None (Lesia Broman, RN) Comments: RN at bedside adjusting US (Lesia Broman, RN) Datetime: 01/21/2017 17:53 NBP Sys/Mariaa/Mean (mmHg): 117 (QS system process) : 70 (QS system process) : 87 (QS system process) Pulse: 93 (QS system process) Communication LaborFlag: Labor (QS system process) Datetime: 01/21/2017 17:40 Patient Position/Activity: Left Lateral (Lesia Broman, RN) I/O Interventions: Up to BR (Lesia Broman, RN) Datetime: 01/21/2017 17:37 NBP Sys/Mariaa/Mean (mmHg): 130 (QS system process) : 75 (QS system process) : 97 (QS system process) Pulse: 89 (QS system process) Communication LaborFlag: Labor (QS system process) Datetime: 01/21/2017 17:30 Uterine Activity Monitor Mode: External; Palpation (Lesia Broman, RN) Frequency (min): none (Lesia Broman, RN) Resting Tone (Palpate): Relaxed (Lesia Broman, RN) Assessment A Monitor Mode: External US (Lesia Broman, RN) FHR Baseline Rate : 125 (Lesia Broman, RN) Variability: Moderate 6-25 bpm (Lesia Broman, RN) Accelerations: 15X15 (Lesia Broman, RN) Decelerations: None (Lesia Broman, RN) Datetime: 01/21/2017 17:21 Patient Care IV/Blood Work: IV Started; IV Bolus Started (Lesia Broman, RN) Patient Care Comments: D5LR infusing into 20 g placed to Right hand by S. Camp RN (Lesia Broman, RN) Datetime: 01/21/2017 17:20 Frequency (min): none (Lesia Broman, RN) Pain Pain Scale: 3 (Lesia Broman, RN) Pain Presence: Constant (Lesia Broman, RN) Pain Type: Sharp (Lesia Broman, RN) Pain Location: Head (Lesia Broman, RN) Pain Relief Measures: Comfort Measures (Lesia Broman, RN) Vaginal Exam Vaginal Bleeding: None (Lesia Broman, RN) Maternal Assessment Level of Consciousness: Fully Conscious (Lesia Broman, RN) DTR's/Clonus: DTRs 2+; No Clonus (Lesia Broman, RN) Headache: Temporal; Frontal (Lesia Broman, RN) Breath Sounds, Left: Clear and Equal (Lesia Broman, RN) Breath Sounds, Right: Clear and Equal (Lesia Broman, RN) Nausea/Vomiting: Present (Lesia Broman, RN) Communication LaborFlag: Labor (QS system process) Datetime: 01/21/2017 17:07 NBP Sys/Mariaa/Mean (mmHg): 120 (QS system process) : 71 (QS system process) : 90 (QS system process) Pulse: 83 (QS system process) Communication LaborFlag: Labor (QS system process) Datetime: 01/21/2017 17:00 Uterine Activity Monitor Mode: External; Palpation (Lesia Broman, RN) Frequency (min): none (Lesia Broman, RN) Pattern: Normal: <= 5 Contractions in 10 Minutes (Lesia Broman, RN) Resting Tone (Palpate): Relaxed (Lesia Broman, RN) Assessment A Monitor Mode: External US (Lesia Broman, RN) FHR Baseline Rate : 130 (Lesia Broman, RN) Variability: Moderate 6-25 bpm (Lesia Broman, RN) Accelerations: None (Lesia Broman, RN) Decelerations: None (Lesia Broman, RN) Datetime: 01/21/2017 16:54 Temperature (F): 98.2 (Lesia Broman, RN) Temperature (C): 36.8 (QS system process) Communication LaborFlag: Labor (QS system process) Datetime: 01/21/2017 16:53 Bedside Blood Glucose: 74 (QS system process) Patient Position/Activity: Left Tilt (Lesia Broman, RN) Patient Care Comments: BGL 74 (Lesia Broman, RN) Communication LaborFlag: Labor (QS system process) Datetime: 01/21/2017 16:45 NBP Sys/Mariaa/Mean (mmHg): 127 (QS system process) : 82 (QS system process) : 98 (QS system process) Pulse: 91 (QS system process) Communication LaborFlag: Labor (QS system process) Datetime: 01/21/2017 15:00 Vital Signs Stage of : Labor (Lesia Broman, RN)
--- NOTE | 2017-01-21 22:47 | L&D Discharge Summary ---
OB Discharge Summary Datetime Report Generated by CPN: 01/21/2017 22:45 DISCHARGE DIAGNOSIS Diagnosis/Symptoms: Other Diagnoses/Symptoms Other: GERD Treatment/Procedures Other: Pepcid 20 mg, 1L D5LR Gestation: 33.6 Parity: 0 DIET/ACTIVITY/RESTRICTIONS Diet: Regular Activity: Normal Activity TEACHING/INSTRUCTIONS/REFERRALS Instructions Given To: Patient/ Instructions Understood: Patient Verbalized Understanding; Support Person Verbalized Understanding Referrals: None Educational Materials- Other: Kick Counts Dehydration DISCHARGE INFORMATION Discharged AMA: No Discharge Date/Time: 01/21/2017 18:45 Discharged To: Home Discharge Provider Name: A. Emmel CNM Accompanied By: Discharge Method: Ambulatory Condition: Stable FOLLOW UP INFORMATION Follow Up With: [facility] Follow Up On: 1 Week Follow Up Phone Number: [facility] - GENERAL INSTR-CALL PROVIDER IF: Contractions: Regular painful contractions every 5 minutes or less for one hour. Time your contractions from the beginning of one to the beginning of the next Pressure: Pressure in your vagina or lower abdomen that may feel like the baby is pushing down Gush of Fluid/Blood: Gush of fluid or blood from your vagina (it is normal to have spotting after vaginal exam or intercourse) Decreased Movement: Your baby is not moving as much as usual- 4 movements in 1 hour after drinking and resting on side Temperature: Temperature greater than 100.0(F) orally
--- NOTE | 2017-01-22 04:47 | Antepartum Discharge Summary ---
Antepartum DC Datetime Report Generated by CPN: 01/22/2017 04:45 DIET/ACTIVITY/RESTRICTIONS Diet: Regular (01/21/2017 18:45:Lesia Broman, RN) Activity: Normal Activity (01/21/2017 18:45:Lesia Broman, RN) TEACHING/INSTRUCTIONS/REFERRALS Instructions Given To: Patient/ (01/21/2017 18:45:Lesia Broman, RN) Instructions Understood: Patient Verbalized Understanding; Support Person Verbalized Understanding (01/21/2017 18:45:Lesia Broman, RN) Referrals: None (01/21/2017 18:45:Lesia Parks RN) Educational Materials- Other: Kick Counts Dehydration (01/21/2017 18:45:Lesia Parks RN) DISCHARGE INFORMATION Discharged AMA: No (01/21/2017 18:45:Lesia Parks RN) Discharge Date/Time: 01/21/2017 18:45 (01/21/2017 18:45:Lesia Parks RN) Discharged To: Home (01/21/2017 18:45:Lesia Parks RN) Discharge Provider Name: Karolina Tidwell CNM (01/21/2017 18:45:Lesia Parks RN) Accompanied By: (01/21/2017 18:45:Lesia Parks RN) Discharge Method: Ambulatory (01/21/2017 18:45:Lesia Parks RN) Condition: Stable (01/21/2017 18:45:Lesia Parks RN) FOLLOW UP INFORMATION Follow Up With: [facility] (01/21/2017 18:45:Lesia Parks RN) Follow Up On: 1 Week (01/21/2017 18:45:Lesia Parks RN) Follow Up Phone Number: [facility] - (01/21/2017 18:45:Lesia Parks RN) GENERAL INSTR-CALL PROVIDER IF: Contractions: Regular painful contractions every 5 minutes or less for one hour. Time your contractions from the beginning of one to the beginning of the next (01/21/2017 18:45:Lesia Parks RN) Pressure: Pressure in your vagina or lower abdomen that may feel like the baby is pushing down (01/21/2017 18:45:Lesia Parks RN) Gush of Fluid/Blood: Gush of fluid or blood from your vagina (it is normal to have spotting after vaginal exam or intercourse) (01/21/2017 18:45:Lesia Parks RN) Decreased Movement: Your baby is not moving as much as usual- 4 movements in 1 hour after drinking and resting on side (01/21/2017 18:45:Lesia Parks RN) Temperature: Temperature greater than 100.0(F) orally (01/21/2017 18:45:Lesia Parks RN) Urinary Output: Decreased urinary output or dark colored urine (01/21/2017 18:45:Lesia Parks RN)
--- NOTE | 2017-01-22 04:47 | L&D Discharge Summary ---
OB Discharge Summary Datetime Report Generated by CPN: 01/22/2017 04:45 DISCHARGE DIAGNOSIS Diagnosis/Symptoms: Other Diagnoses/Symptoms Other: GERD Treatment/Procedures Other: Pepcid 20 mg, 1L D5LR Gestation: 33.6 Parity: 0 DIET/ACTIVITY/RESTRICTIONS Diet: Regular Activity: Normal Activity TEACHING/INSTRUCTIONS/REFERRALS Instructions Given To: Patient/ Instructions Understood: Patient Verbalized Understanding; Support Person Verbalized Understanding Referrals: None Educational Materials- Other: Kick Counts Dehydration DISCHARGE INFORMATION Discharged AMA: No Discharge Date/Time: 01/21/2017 18:45 Discharged To: Home Discharge Provider Name: A. Emmel CNM Accompanied By: Discharge Method: Ambulatory Condition: Stable FOLLOW UP INFORMATION Follow Up With: [facility] Follow Up On: 1 Week Follow Up Phone Number: [facility] - GENERAL INSTR-CALL PROVIDER IF: Contractions: Regular painful contractions every 5 minutes or less for one hour. Time your contractions from the beginning of one to the beginning of the next Pressure: Pressure in your vagina or lower abdomen that may feel like the baby is pushing down Gush of Fluid/Blood: Gush of fluid or blood from your vagina (it is normal to have spotting after vaginal exam or intercourse) Decreased Movement: Your baby is not moving as much as usual- 4 movements in 1 hour after drinking and resting on side Temperature: Temperature greater than 100.0(F) orally
--- NOTE | 2017-01-22 04:47 | L&D Admission Assessment ---
LD ADM ASMT Datetime Report Generated by CPN: 01/22/2017 04:45 PATIENT ASSESSMENT Assessment Type: Triage (01/21/2017 17:20:Lesia Broman, RN) WEIGHT Weight (lb): 200 (01/21/2017 17:00:QS system process) Weight (kg): 90.9 (01/21/2017 17:00:QS system process) BMI: 35.4 (01/21/2017 17:00:QS system process) PAIN Pain Scale: 3 (01/21/2017 17:20:Lesia Broman, RN) Pain Presence: Constant (01/21/2017 17:20:Lesia Broman, RN) Pain Type: Sharp (01/21/2017 17:20:Lesia Broman, RN) Pain Location: Head (01/21/2017 17:20:Lesia Broman, RN) Pain Related to Contraction: No (01/21/2017 17:20:Lesia Broman, RN) CONTRACTIONS Frequency (min): none (01/21/2017 18:30:Lesia Broman, RN) Frequency (min): none (01/21/2017 18:00:Lesia Broman, RN) Frequency (min): none (01/21/2017 17:30:Lesia Broman, RN) Frequency (min): none (01/21/2017 17:20:Lesia Broman, RN) Frequency (min): none (01/21/2017 17:00:Lesia Broman, RN) Pattern: Normal: <= 5 Contractions in 10 Minutes (01/21/2017 17:00:Lesia Broman, RN) Resting Tone [place]: Relaxed (01/21/2017 18:30:Lesia Broman, RN) Resting Tone [place]: Relaxed (01/21/2017 18:00:Lesia Broman, RN) Resting Tone [place]: Relaxed (01/21/2017 17:30:Lesia Broman, RN) Resting Tone [place]: Relaxed (01/21/2017 17:00:Lesia Broman, RN) NEURO Level of Consciousness: Fully Conscious (01/21/2017 17:20:Lesia Broman, RN) DTR's/Clonus: DTRs 2+; No Clonus (01/21/2017 17:20:Lesia Broman, RN) Headache: Temporal; Frontal (01/21/2017 17:20:Lesia Broman, RN) Dizziness: No (01/21/2017 17:20:Lesia Broman, RN) Blurred Vision: Yes (01/21/2017 17:20:Lesia Broman, RN) Extremity Numbness/Tingling : None (01/21/2017 17:20:Lesia Broman, RN) Extremity Movement: Full Range of Motion (01/21/2017 17:20:Lesia Broman, RN) CARDIOVASCULAR Heart Rhythm: Regular (01/21/2017 17:20:Lesia Parks RN) Nailbeds: [place] (01/21/2017 17:20:Lesia Parks RN) Capillary Refill: Less than 3 Seconds (01/21/2017 17:20:Lesia Parks RN) Lower Extremities Edema: Bilateral Lower Extremities (01/21/2017 17:20:Lesia Parks RN) Lower Extremities Edema Degree: 1+ (01/21/2017 17:20:Lesia Parks RN) Upper Extremities Edema: None (01/21/2017 17:20:Lesia Parks RN) Upper Extremities Edema Degree: None (01/21/2017 17:20:Lesia Parks RN) Facial Edema: None (01/21/2017 17:20:Lesia Parks RN) DVT RISK ASSESSMENT DVT Risk Age: Age less than 41 years (01/21/2017 17:20:Lesia Parks RN) DVT Risk BMI: BMI<31 (01/21/2017 17:20:Lesia Parks RN) DVT Risk Surgery: Arthroscopic Surgery (>60 minutes) (01/21/2017 17:20:Lesia Parks RN) DVT Risk Other: Women Only- or (<1 month) (01/21/2017 17:20:Lesia Parks RN) DVT Risk Total: 3 (01/21/2017 17:20:QS system process) DVT Risk Text: High Risk (20-40%)- Consider stockings, compresssion device, pharmacological therapy per hospital policy (01/21/2017 17:20:QS system process) RESPIRATORY Respiratory Effort: Unlabored; Regular Rhythm; Equal Expansion (01/21/2017 17:20:Lesia Broman, RN) Breath Sounds, Left: Clear and Equal (01/21/2017 17:20:Lesia Broman, RN) Breath Sounds, Right: Clear and Equal (01/21/2017 17:20:Lesia Broman, RN) Cough Productivity: None (01/21/2017 17:20:Lesia Broman, RN) GASTROINTESTINAL Nausea/Vomiting: Present (01/21/2017 17:20:Lesia Broman, RN) Bowel Sounds: Normoactive; All Quadrants (01/21/2017 17:20:Lesia Broman, RN) Bowel Patterns: Soft, Formed Stool (01/21/2017 17:20:Lesia Broman, RN) Hemorrhoids: None (01/21/2017 17:20:Lesia Broman, RN) Diet Type: Regular diet (01/21/2017 17:20:Lesia Broman, RN) Last Meal: 01/21/2017 14:30 (01/21/2017 17:20:Lesia Broman, RN) GENITOURINARY Bladder: Nondistended (01/21/2017 17:20:Lesia Broman, RN) Frequency of Urination: Yes (01/21/2017 17:20:Lesia Broman, RN) Urination Burning: No (01/21/2017 17:20:Lesia Broman, RN) CVA Tenderness: No (01/21/2017 17:20:Lesia Broman, RN) Vaginal Bleeding: None (01/21/2017 17:20:Lesia Broman, RN) Vaginal Discharge Amount: None (01/21/2017 17:20:Lesia Broman, RN) INTEGUMENTARY Skin Color: Normal for Race (01/21/2017 17:20:Lesia Broman, RN) Skin Temperature: Warm (01/21/2017 17:20:Lesia Broman, RN) Skin Moisture: Dry (01/21/2017 17:20:Lesia Broman, RN) Surgical Scars: right knee (01/21/2017 17:20:Lesia Broman, RN) WES SKIN ASSESSMENT Wes Scale Sensory Perception: No Impairment- Responds to verbal commands. Has no sensory deficit which would limit ability to feel or voice pain or discomfort (01/21/2017 17:20:Lesia Parks RN) Wes Scale Moisture: Rarely Moist- Skin is usually dry. Linen only requires changing at routine intervals (01/21/2017 17:20:Lesia Parks RN) Wes Scale Activity: Walks Frequently- Walks outside the room at least twice a day and inside room at least every 2 hours during the day. (01/21/2017 17:20:Lesia Parks RN) Wes Scale Mobility: No Limitations- Makes major and frequent changes in position without assistance (01/21/2017 17:20:Lesia Parks RN) Wes Scale Nutrition: Excellent- Eats most of every meal. Never refuses a meal. Usually eats a total of 4 or more servings of meat and dairy products. Occasionally eats between meals. Does not require supplementation (01/21/2017 17:20:Lesia Parks RN) Wes Scale Friction and Shear: No Apparent Problem- Moves in bed and in chair independently and has sufficient muscle strength to lift up completely during move. Maintains good position in bed or chair at all times (01/21/2017 17:20:Lesia Parks RN) Wes Scale Total: 23 (01/21/2017 17:20:QS system process) Wes Scale Risk: No Risk of Pressure Ulcer Noted at this Time (01/21/2017 17:20:QS system process) SUPPORT Family Support: Significant Other supportive, at bedside frequently (01/21/2017 17:20:Lesia Broman, RN) Emotional State: Calm/Relaxed (01/21/2017 17:20:Lesia Broman, RN) SAFETY Call [place] Within Reach: Yes (01/21/2017 17:20:Lesia Broman, RN) Side Rails Up: Yes (01/21/2017 17:20:Lesia Broman, RN) Bed Wheels Locked: Yes (01/21/2017 17:20:Lesia Broman, RN) Arm Bands Present: Yes (01/21/2017 17:20:Lesia Broman, RN) Isolation: [place] (01/21/2017 17:20:Lesia Broman, RN) FALL SCREEN Fall Risk History of Falling: (0) No (01/21/2017 17:20:Lesia Parks RN) Fall Risk Secondary Diagnosis: (0) No (01/21/2017 17:20:Lesia Parks RN) Fall Risk Ambulatory Aid: (0) None/Bedrest/Wheelchair/Nurse Assist (01/21/2017 17:20:Lesia Parks RN) Fall Risk IV Therapy: (20) Yes (01/21/2017 17:20:Lesia Parks RN) Fall Risk Gait: (0) Normal/Bedrest/Immobile (01/21/2017 17:20:Lesia Pakrs RN) Fall Risk Mental Status: (0) Oriented to Own Ability (01/21/2017 17:20:Lesia Parks RN) Fall Risk Score: 20 (01/21/2017 17:20:QS system process) Fall Risk Score Definition: No Risk: No action required (01/21/2017 17:20:QS system process) BABY A FHR Baseline Rate (bpm) Baby A: 130 (01/21/2017 18:30:Lesia Parks RN) FHR Baseline Rate (bpm) Baby A: 125 (01/21/2017 18:00:Lesia Parks RN) FHR Baseline Rate (bpm) Baby A: 125 (01/21/2017 17:30:Lesia Parks RN) FHR Baseline Rate (bpm) Baby A: 130 (01/21/2017 17:00:Lesia Parks RN) Variability Baby A: Moderate 6-25 bpm (01/21/2017 18:30:Lesia Parks RN) Variability Baby A: Moderate 6-25 bpm (01/21/2017 18:00:Lesia Parks RN) Variability Baby A: Moderate 6-25 bpm (01/21/2017 17:30:Lesia Parks RN) Variability Baby A: Moderate 6-25 bpm (01/21/2017 17:00:Lesia Parks RN) Accelerations Baby A: 15X15 (01/21/2017 18:30:Lesia Parks RN) Accelerations Baby A: None (01/21/2017 18:00:Lesia Parks RN) Accelerations Baby A: 15X15 (01/21/2017 17:30:Lesia Parks RN) Accelerations Baby A: None (01/21/2017 17:00:Lesia Parks RN) Decelerations Baby A: None (01/21/2017 18:30:Lesia Parks RN) Decelerations Baby A: None (01/21/2017 18:00:Lesia Parks RN) Decelerations Baby A: None (01/21/2017 17:30:Lesia Parks RN) Decelerations Baby A: None (01/21/2017 17:00:Lesia Parks RN)
--- NOTE | 2017-01-22 04:47 | L&D Flow Sheet ---
LD Flowsheet Datetime Report Generated by CPN: 01/22/2017 04:45 Datetime: 01/21/2017 18:31 I/O Interventions: Up to BR (Lesia Broman, RN) Patient Care Comments: IV discontinued at this time, pt up to br to get dressed for discharge (Lesia Broman, RN) Datetime: 01/21/2017 18:30 Monitor Mode: External (Lesia Broman, RN) Frequency (min): none (Lesia Broman, RN) Duration Criteria: Less than Two 120 Second Contractions (Lesia Broman, RN) Resting Tone (Palpate): Relaxed (Lesia Broman, RN) Monitor Mode: External US (Lesia Broman, RN) Monitor Interventions for FHR: Ultrasound Adjusted (Lesia Broman, RN) FHR Baseline Rate : 130 (Lesia Broman, RN) Variability: Moderate 6-25 bpm (Lesia Broman, RN) Accelerations: 15X15 (Lesia Broman, RN) Decelerations: None (Lesia Broman, RN) Datetime: 01/21/2017 18:29 Patient Care Comments: Karolian Tidwell CNM at bedside to speak with pt (Lesia Broman, RN) Datetime: 01/21/2017 18:22 NBP Sys/Mariaa/Mean (mmHg): 133 (QS system process) : 82 (QS system process) : 102 (QS system process) Pulse: 90 (QS system process) LaborFlag: Labor (QS system process) Datetime: 01/21/2017 18:14 Antiemetics/Antacids: Pepcid IV (mg) @ 20 (Lesia Broman, RN) Medication Comments: 20 mg Pepcid given per A. Emmel CNM (Lesia Broman, RN) Datetime: 01/21/2017 18:08 NBP Sys/Mariaa/Mean (mmHg): 127 (QS system process) : 78 (QS system process) : 97 (QS system process) Pulse: 88 (QS system process) LaborFlag: Labor (QS system process) Datetime: 01/21/2017 18:00 Monitor Mode: External (Lesia Broman, RN) Frequency (min): none (Lesia Broman, RN) Resting Tone ([place]pate): Relaxed (Lesia Broman, RN) Monitor Mode: External US (Lesia Broman, RN) FHR Baseline Rate : 125 (Lesia Broman, RN) Variability: Moderate 6-25 bpm (Lesia Broman, RN) Accelerations: None (Lesia Broman, RN) Decelerations: None (Lesia Broman, RN) Comments: RN at bedside adjusting US (Lesia Broman, RN) Datetime: 01/21/2017 17:53 NBP Sys/[place]/Mean (mmHg): 117 (QS system process) : 70 (QS system process) : 87 (QS system process) Pulse: 93 (QS system process) LaborFlag: Labor (QS system process) Datetime: 01/21/2017 17:40 Patient Position/Activity: Left Lateral (Lesia Broman, RN) I/O Interventions: Up to BR (Lesia Broman, RN) Datetime: 01/21/2017 17:37 NBP Sys/[place]/Mean (mmHg): 130 (QS system process) : 75 (QS system process) : 97 (QS system process) Pulse: 89 (QS system process) LaborFlag: Labor (QS system process) Datetime: 01/21/2017 17:30 Monitor Mode: External; Palpation (Lesia Broman, RN) Frequency (min): none (Lesia Broman, RN) Resting Tone (Palpate): Relaxed (Lesia Broman, RN) Monitor Mode: External US (Lesia Broman, RN) FHR Baseline Rate : 125 (Lesia Broman, RN) Variability: Moderate 6-25 bpm (Lesia Broman, RN) Accelerations: 15X15 (Lesia Broman, RN) Decelerations: None (Lesia Broman, RN) Datetime: 01/21/2017 17:21 IV/Blood Work: IV Started; IV Bolus Started (Lesia Broman, RN) Patient Care Comments: D5LR infusing into 20 g placed to Right hand by Delia Ferrer RN (Lesia Broman, RN) Datetime: 01/21/2017 17:20 Frequency (min): none (Lesia Broman, RN) Pain Scale: 3 (Lesia Broman, RN) Pain Presence: Constant (Lesia Broman, RN) Pain Type: Sharp (Lesia Broman, RN) Pain Location: Head (Lesia Broman, RN) Pain Relief Measures: Comfort Measures (Lesia Broman, RN) Vaginal Bleeding: None (Lesia Broman, RN) Level of Consciousness: Fully Conscious (Lesia Broman, RN) DTR's/Clonus: DTRs 2+; No Clonus (Lesia Broman, RN) Headache: Temporal; Frontal (Lesia Broman, RN) Breath Sounds, Left: Clear and Equal (Lesia Broman, RN) Breath Sounds, Right: Clear and Equal (Lesia Broman, RN) Nausea/Vomiting: Present (Lesia Broman, RN) LaborFlag: Labor (QS system process) Datetime: 01/21/2017 17:07 NBP Sys/[place]/Mean (mmHg): 120 (QS system process) : 71 (QS system process) : 90 (QS system process) Pulse: 83 (QS system process) LaborFlag: Labor (QS system process) Datetime: 01/21/2017 17:00 Monitor Mode: External; Palpation (Lesia Broman, RN) Frequency (min): none (Lesia Broman, RN) Pattern: Normal: <= 5 Contractions in 10 Minutes (Lesia Broman, RN) Resting Tone (Palpate): Relaxed (Lesia Broman, RN) Monitor Mode: External US (Lesia Broman, RN) FHR Baseline Rate : 130 (Lesia Broman, RN) Variability: Moderate 6-25 bpm (Lesia Broman, RN) Accelerations: None (Lesia Broman, RN) Decelerations: None (Lesia Broman, RN) Datetime: 01/21/2017 16:54 Temperature (F): 98.2 (Lesia Parks, RN) Temperature (C): 36.8 (QS system process) LaborFlag: Labor (QS system process) Datetime: 01/21/2017 16:53 Bedside Blood Glucose: 74 (QS system process) Patient Position/Activity: Left Tilt (Lesia Parks, RN) Patient Care Comments: BGL 74 (Lesia Parks, RN) LaborFlag: Labor (QS system process) Datetime: 01/21/2017 16:45 NBP Sys/Mariaa/Mean (mmHg): 127 (QS system process) : 82 (QS system process) : 98 (QS system process) Pulse: 91 (QS system process) LaborFlag: Labor (QS system process)
--- NOTE | 2017-01-22 04:47 | L&D General Admission ---
General Admit Datetime Report Generated by CPN: 01/22/2017 04:45 INFORMATION EDC: 03/05/2017 00:00 (01/21/2017 17:31:Lesia Charly, RN) : 2 (01/21/2017 17:31:Lesia Brompavel, RN) Para: 0 (01/21/2017 17:31:Lesia Brompavel, RN) Term: 0 (01/21/2017 17:31:Lesia Brompavel, RN) : 0 (01/21/2017 17:31:Lesia Broman, RN) Spontaneous Abortions: 1 (01/21/2017 17:31:Lesia Broman, RN) Induced Abortions: 0 (01/21/2017 17:31:Lesia Brompavel, RN) Livin (01/21/2017 17:31:Lesia Parks, RN) CARE Primary Firearms Expert: [facility] (01/21/2017 17:31:Lesia Parks RN) Adequate Care: Yes (01/21/2017 17:31:Lesia Parks RN) Height (in): 63 (01/21/2017 17:00:QS system process) ALLERGIES Medication Allergy: No (01/21/2017 17:31:Lesia Parks RN) Medication Allergies: No Known Allergies (01/21/2017) (01/21/2017 17:00:QS system process) Medication Allergies: No Known Allergies (12/21/2016) (01/21/2017 16:18:QS system process) Latex Allergy: No Latex Allergies (01/21/2017 17:31:Lesia Parks RN) COMMUNICATION Primary Language: Mauritanian (01/21/2017 17:31:Lesia Parks RN) Medical Tx Preferred Language: [place]itanian (01/21/2017 17:31:Lesia Parks RN) DEMOGRAPHICS Next of Kin Relationship: SPO (01/21/2017 16:18:QS system process) Marital Status: (01/21/2017 16:18:QS system process) Uatsdin: None (01/21/2017 16:18:QS system process) DRUG AND ALCOHOL USE Alcohol: No (01/21/2017 17:31:Lesia Parks RN) Cigarettes: Never Smoker. [id number] (01/21/2017 17:31:Lesia Parks RN) Marijuana: No (01/21/2017 17:31:Lesia Parks RN) Cocaine: No (01/21/2017 17:31:Lesia Parks RN) Other Illicit Drugs: No (01/21/2017 17:31:Lesia Parks RN) VACCINE HISTORY Influenza Vaccine: Yes (01/21/2017 17:31:Lesia Parks RN) Influenza Date: 08/2016 (01/21/2017 17:31:Lesia Parks RN) Pneumococcal Vaccine: No (01/21/2017 17:31:Lesia Parks RN) Tetanus Vaccine: Yes (01/21/2017 17:31:Lesia Parks RN) Tetanus Date: 2004 (01/21/2017 17:31:Lesia Parks RN) Tdap Vaccine: Yes (01/21/2017 17:31:Lesia Parks RN) Tdap Date: 2004 (01/21/2017 17:31:Lesia Parks RN) Hepatitis B Vaccine: Yes (01/21/2017 17:31:Lesia Parks RN) Hepatitis B Vaccine Date : 2004 (01/21/2017 17:31:Lesia Parks RN) Telephonic Nurse Case Manager: [facility] (01/21/2017 17:31:Lesia Parks RN) Feeding Preference: Breast (01/21/2017 17:31:Lesia Parks RN) Benefit of Breast Feed Discussed: Yes (01/21/2017 17:31:Lesia Parks RN) Circumcision: N/A (01/21/2017 17:31:Lesia Parks RN) Classes Attended: No (01/21/2017 17:31:Lesia Parks RN) Tubal Ligation: No (01/21/2017 17:31:Lesia Parks RN) Tubal Authorization Signed: N/A (01/21/2017 17:31:YOLETTE Galaviz) Consent: N/A (01/21/2017 17:31:Lesia Parks RN) Consent Signed: N/A (01/21/2017 17:31:YOLETTE Galaviz) Pain Management Plans: Epidural (01/21/2017 17:31:Lesia Parks RN) Plans for Labor and Delivery: Other, Specify (01/21/2017 17:31:Lesia Parks RN) Other Labor and Delivery Plans: Delay cord cutting (01/21/2017 17:31:Lesia Parks RN) Support Person: Christiano Dugan (01/21/2017 17:31:Lesia Parks RN) Support Person Relationship: (01/21/2017 17:31:Lesia Parks RN) Cultural/Spritual Practice: No (01/21/2017 17:31:Lesia Parks RN) Spir/Cult Dietary Needs: No (01/21/2017 17:31:Lesia Parks RN) LIVING SITUATION/DISCHARGE PLAN Living Arrangements: House (01/21/2017 17:31:Lesia Parks RN) Adequate Access to:: Electric; Heat; Refrigeration; Plumbing/Running water; Phone (01/21/2017 17:31:Lesia Parks RN) WIC Program: No (01/21/2017 17:31:Lesia Parks RN) Discharge Chief Cloth Finishing Range Operator Person: Christiano Dugan (01/21/2017 17:31:Lesia Parks RN) Person to Help after Discharge: (01/21/2017 17:31:Lesia Parks RN) Currently Using Commun Resources: No (01/21/2017 17:31:Lesia Parks RN) Specify Current Resource Used: Medicaid (01/21/2017 17:31:Lesia Parks RN) Outside Agency/Cold Mill Operator: No (01/21/2017 17:31:Lesia Parks RN) Car Seat for Discharge: Yes (01/21/2017 17:31:Lesia Parks RN) Adoption Requested: No (01/21/2017 17:31:Lesia Parks RN) Pt Contact w/ Post : N/A (01/21/2017 17:31:Lesia Parks RN) LABS Blood Type: A Positive (01/21/2017 17:31:YOLETTE Galaviz) Antibody Screen: negative (01/21/2017 17:31:YOLETTE Galaviz) Hemoglobin: 11.7 L (08/20/2016 14:42:QS system process) Hematocrit: 35.2 L (08/20/2016 14:42:QS system process) MCV: 87 (08/20/2016 14:42:QS system process) RPR/VDRL: Nonreactive (01/21/2017 17:31:YOLETTE Galaviz) Rubella: Immune (01/21/2017 17:31:[place], RNC) OB/PREVIOUS HISTORY Previous Procedures: None (01/21/2017 17:31:Lesia Parks RN) Current Procedures: Ultrasound; NST (01/21/2017 17:31:Lesia Parks RN) History of Previous : No (01/21/2017 17:31:Lesia Parks RN) History of Gestational Diabetes: No (01/21/2017 17:31:Lesia Parks RN) History of PIH: No (01/21/2017 17:31:Lesia Parks RN) History of Incompetent Cervix: No (01/21/2017 17:31:Lesia Parks RN) History of Placenta Previa/Abrup: No (01/21/2017 17:31:Lesia Parks RN) History of Macrosomia: No (01/21/2017 17:31:Lesia Parks RN) History of IUGR: No (01/21/2017 17:31:Lesia Parks RN) History of Hemorrhage: No (01/21/2017 17:31:Lesia Parks RN) History of Loss/Stillborn: No (01/21/2017 17:31:Lesia Parks RN) History of : No (01/21/2017 17:31:Lesia Parks RN) History of D (Rh) Sensitization: No (01/21/2017 17:31:Lesia Parks RN) History Recurrent Loss/Stillborn: No (01/21/2017 17:31:Lesia Parks RN) History Depression/PP Depression: No (01/21/2017 17:31:Lesia Parks RN) History of Uterine Anomaly/MARCELO: No (01/21/2017 17:31:Lesia Parks RN) History of Infertility: No (01/21/2017 17:31:Lesia Parks RN) History of ART Treatment: No (01/21/2017 17:31:Lesia Parks RN) History of MARCELO: No (01/21/2017 17:31:Lesia Parks RN) Comments Obstetrical History: G1 - SAB 2014 G2 - Current (01/21/2017 17:31:Lesia Parks RN) MEDICAL HISTORY Med Hx Diabetes: No (01/21/2017 17:31:Lesia Parks RN) Med Hx Hypertension: No (01/21/2017 17:31:Lesia Parks RN) Med Hx Heart Disease: No (01/21/2017 17:31:Lesia Parks RN) Med Hx Autoimmune Disorder: No (01/21/2017 17:31:Lesia Parks RN) Med Hx Kidney Disease/UTI: No (01/21/2017 17:31:Lesia Parks RN) Med Hx Neurologic/Epilepsy: No (01/21/2017 17:31:Lesia Parks RN) Med Hx Psychiatric Disorders: No (01/21/2017 17:31:Lesia Parks RN) Med Hx Hepatitis/Liver Disease: No (01/21/2017 17:31:Lesia Parks RN) Med Hx Varicosities/Phlebitis: No (01/21/2017 17:31:Lesia Parks RN) Med Hx Thyroid Dysfunction: No (01/21/2017 17:31:Lesia Parks RN) Med Hx Trauma/Violence: No (01/21/2017 17:31:Lesia Parks RN) Med Hx Blood Transfusion: Yes (01/21/2017 17:31:Lesia Parks RN) Med Hx Pulmonary (Asthma,TB): No (01/21/2017 17:31:Lesia Parks RN) Med Hx Breast: No (01/21/2017 17:31:Lesia Parks RN) Med Hx TROUBLE LOCATER Surgery: No (01/21/2017 17:31:Lesia Parks RN) Med Hx Hospitalization/Surgery: Yes (01/21/2017 17:31:eLsia Parks RN) Med Hx Anesthetic Complications: No (01/21/2017 17:31:Lesia Parks RN) Med Hx Abnormal Pap Smear: No (01/21/2017 17:31:Lesia Parks RN) Other Medical Diseases: Yes (01/21/2017 17:31:Lesia Parks RN) Med Hx Significant Family Hx: No (01/21/2017 17:31:Lesia Parks RN) Details of Med/Surg Hx: Meningitis, Endometriosis, Pneumonia (01/21/2017 17:31:Lesia Parks RN) INFECTIOUS HISTORY Inf Hx Gonorrhea: No (01/21/2017 17:31:Lesia Parks RN) Inf Hx Chlamydia: No (01/21/2017 17:31:Lesia Parks RN) Inf Hx Syphilis: No (01/21/2017 17:31:Lesia Parks RN) Inf Hx HIV/AIDS: No (01/21/2017 17:31:Lesia Parks RN) Inf Hx Human Papilloma Virus: No (01/21/2017 17:31:Lesia Parks RN) Inf Hx Pt/Partner Genital Herpes: No (01/21/2017 17:31:Lesia Parks RN) Inf Hx Tuberculosis/Exposure: No (01/21/2017 17:31:Lesia Parks RN) Inf Hx Hepatitis B,C: No (01/21/2017 17:31:Lesia Parks RN) Inf Hx Rash or Viral Illness: No (01/21/2017 17:31:Lesia Parks RN) GENETIC HISTORY Gen Hx Age >=35 at MARIA E: No (01/21/2017 17:31:Lesia Parks RN) Gen Hx Thalassemia: No (01/21/2017 17:31:Lesia Parks RN) Gen Hx Congenital Heart Defect: No (01/21/2017 17:31:Lesia Parks RN) Gen Hx Neural Tube Defect: No (01/21/2017 17:31:Lesia Parks RN) Gen Hx Down's Syndrome: No (01/21/2017 17:31:Lesia Parks RN) Gen Hx Silvino-Sachs: No (01/21/2017 17:31:Lesia Parks RN) Gen Hx Natalie: No (01/21/2017 17:31:Lesia Parks RN) Gen Hx Familial Dysautonomia: No (01/21/2017 17:31:Lesia Parks RN) Gen Hx Sickle Cell Disease/Trait: Yes (01/21/2017 17:31:Lesia Parks RN) Gen Hx Hemophilia/Blood Disorder: No (01/21/2017 17:31:Lesia Parks RN) Gen Hx Muscular Dystrophy: No (01/21/2017 17:31:Lesia Parks RN) Gen Hx Cystic Fibrosis: No (01/21/2017 17:31:Lesia Parks RN) Gen Hx Huntingtons Chorea: No (01/21/2017 17:31:Lesia Parks RN) Gen Hx Mental Retardation/Autism: No (01/21/2017 17:31:Lesia Parks RN) Gen Hx Tested for Fragile X: No (01/21/2017 17:31:Lesia Parks RN) Gen Hx Other Inher/Chromosomal: No (01/21/2017 17:31:Lesia Parks RN) Gen Hx Maternal Metabolic DO: No (01/21/2017 17:31:Lesia Parks RN) Gen Hx Pt Father or FOB Defect: No (01/21/2017 17:31:Lesia Parks RN) Gen Hx Other Genetic History: No (01/21/2017 17:31:Lesia Parks RN) Gen Hx Drugs/Meds since LMP: No (01/21/2017 17:31:Lesia Parks RN) Details of Genetic History: Trait for sickle cell in family (01/21/2017 17:31:Lesia Parks RN)
--- NOTE | 2017-01-22 04:47 | L&D Current Admission ---
Current Admit Datetime Report Generated by CPN: 01/22/2017 04:45 ADMISSION INFORMATION Chief Complaint: Nausea; Vomiting (01/21/2017 17:20:Lesia Parks RN)
--- NOTE | 2017-01-22 10:46 | L&D General Admission ---
General Admit Datetime Report Generated by CPN: 01/22/2017 10:45 INFORMATION Patient Age: 31 (08/04/2016 16:06:QS system process) EDC: 03/05/2017 00:00 (01/21/2017 17:31:Lesia Parks RN) : 2 (01/21/2017 17:31:Lesia Parks RN) Para: 0 (01/21/2017 17:31:Lesia Parks RN) Term: 0 (01/21/2017 17:31:Lesia Parks RN) : 0 (01/21/2017 17:31:Lesia Parks RN) Spontaneous Abortions: 1 (01/21/2017 17:31:Lesia Parks RN) Induced Abortions: 0 (01/21/2017 17:31:Lesia Parks RN) Livin (01/21/2017 17:31:Lesia Parks RN) CARE Primary Resident Care Manager: [employer] (01/21/2017 17:31:Lesia Parks RN) Adequate Care: Yes (01/21/2017 17:31:Lesia Parks RN) Height (in): 63 (01/21/2017 17:00:QS system process) Height (in): 63 (08/06/2016 12:19:QS system process) Height (in): 63 (08/04/2016 16:27:QS system process) ALLERGIES Medication Allergy: No (01/21/2017 17:31:Lesia Parks RN) Medication Allergies: No Known Allergies (01/21/2017) (01/21/2017 17:00:QS system process) Medication Allergies: No Known Allergies (12/21/2016) (01/21/2017 16:18:QS system process) Medication Allergies: No Known Allergies (07/28/2016) (08/04/2016 16:06:QS system process) Latex Allergy: No Latex Allergies (01/21/2017 17:31:Lesia Parks RN) COMMUNICATION Primary Language: Amharic (01/21/2017 17:31:Lesia Parks RN) Medical Tx Preferred Language: Amharic (01/21/2017 17:31:Lesia Parks RN) DEMOGRAPHICS Address: [address] [place] [id number] (08/04/2016 16:06:QS system process) Zipcode: [address] (08/04/2016 16:06:QS system process) Home (08/04/2016 16:06:QS system process) SSN: [id number] (08/04/2016 16:06:QS system process) Next of Kin Name: SMITHA DUGAN (08/04/2016 16:06:QS system process) Next of Kin (08/04/2016 16:06:QS system process) Next of Kin Relationship: SPO (01/21/2017 16:18:QS system process) Next of Kin Relationship: OR (08/04/2016 16:06:QS system process) Date of : 1985 (08/04/2016 16:06:QS system process) Marital Status: (01/21/2017 16:18:QS system process) Marital Status: Single (08/04/2016 16:06:QS system process) Sex: Female (08/04/2016 16:06:QS system process) Race: (08/04/2016 16:06:QS system process) Ethnicity: Non- or (08/04/2016 16:06:QS system process) Mormonism: None (01/21/2017 16:18:QS system process) Mormonism: Other (08/04/2016 16:06:QS system process) DRUG AND ALCOHOL USE Alcohol: No (01/21/2017 17:31:Lesia Parks RN) Cigarettes: Never Smoker. [id number] (01/21/2017 17:31:Lesia Parks RN) Marijuana: No (01/21/2017 17:31:Lesia Parks RN) Cocaine: No (01/21/2017 17:31:Lesia Parks RN) Other Illicit Drugs: No (01/21/2017 17:31:Lesia Parks RN) VACCINE HISTORY Influenza Vaccine: Yes (01/21/2017 17:31:Lesia Parks RN) Influenza Date: 08/2016 (01/21/2017 17:31:Lesia Parks RN) Pneumococcal Vaccine: No (01/21/2017 17:31:Lesia Parks RN) Tetanus Vaccine: Yes (01/21/2017 17:31:Lesia Parks RN) Tetanus Date: 2004 (01/21/2017 17:31:Lesia Parks RN) Tdap Vaccine: Yes (01/21/2017 17:31:Lesia Parks RN) Tdap Date: 2004 (01/21/2017 17:31:Lesia Parks RN) Hepatitis B Vaccine: Yes (01/21/2017 17:31:Lesia Parks RN) Hepatitis B Vaccine Date : 2004 (01/21/2017 17:31:Lesia Parks RN) Plc Technician: [facility] (01/21/2017 17:31:Lesia Parks RN) Feeding Preference: Breast (01/21/2017 17:31:Lesia Parks RN) Benefit of Breast Feed Discussed: Yes (01/21/2017 17:31:Lesia Parks RN) Circumcision: N/A (01/21/2017 17:31:Lesia Parks RN) Classes Attended: No (01/21/2017 17:31:Lesia Parks RN) Tubal Ligation: No (01/21/2017 17:31:Lesia Parks RN) Tubal Authorization Signed: N/A (01/21/2017 17:31:YOLETTE Galaviz) Consent: N/A (01/21/2017 17:31:Lesia Parks RN) Consent Signed: N/A (01/21/2017 17:31:YOLETTE Galaviz) Pain Management Plans: Epidural (01/21/2017 17:31:Lesia Parks RN) Plans for Labor and Delivery: Other, Specify (01/21/2017 17:31:Lesia Parks RN) Other Labor and Delivery Plans: Delay cord cutting (01/21/2017 17:31:Lesia Parks RN) Support Person: Smitha Dugan (01/21/2017 17:31:Lesia Parks RN) Support Person Relationship: (01/21/2017 17:31:Lesia Parks RN) Cultural/Spritual Practice: No (01/21/2017 17:31:Lesia Parks RN) Spir/Cult Dietary Needs: No (01/21/2017 17:31:Lesia Parks RN) LIVING SITUATION/DISCHARGE PLAN Living Arrangements: House (01/21/2017 17:31:Lesia Parks RN) Adequate Access to:: Electric; Heat; Refrigeration; Plumbing/Running water; Phone (01/21/2017 17:31:Lesia Parks RN) WIC Program: No (01/21/2017 17:31:Lesia Parks RN) Discharge Cut Off [place] Person: Smitha Ritchie (01/21/2017 17:31:Lesia Parks RN) Person to Help after Discharge: (01/21/2017 17:31:Lesia Parks RN) Currently Using Commun Resources: No (01/21/2017 17:31:Lesia Parks RN) Specify Current Resource Used: Medicaid (01/21/2017 17:31:Lesia Parks RN) Outside Agency/[employer]neyman: Radha (01/21/2017 17:31:Lesia Parks RN) Car Seat for Discharge: Yes (01/21/2017 17:31:Lesia Parks RN) Adoption Requested: No (01/21/2017 17:31:Lesia Parks RN) Pt Contact w/infant Post : N/A (01/21/2017 17:31:Lesia Parks RN) LABS Blood Type: A Positive (01/21/2017 17:31:YOLETTE Galaviz) Antibody Screen: negative (01/21/2017 17:31:YOLETTE Galaviz) Hemoglobin: 11.7 L (08/20/2016 14:42:QS system process) Hemoglobin: 11.9 L (08/04/2016 17:35:QS system process) Hematocrit: 35.2 L (08/20/2016 14:42:QS system process) Hematocrit: 35.5 L (08/04/2016 17:35:QS system process) MCV: 87 (08/20/2016 14:42:QS system process) MCV: 87 (08/04/2016 17:35:QS system process) RPR/VDRL: Nonreactive (01/21/2017 17:31:YOLETTE Galaviz) Rubella: Immune (01/21/2017 17:31:YOLETTE Galaviz) OB/PREVIOUS HISTORY Previous Procedures: None (01/21/2017 17:31:Lesia Parks RN) Current Procedures: Ultrasound; NST (01/21/2017 17:31:Lesia Parks RN) History of Previous : No (01/21/2017 17:31:Lesia Parks RN) History of Gestational Diabetes: No (01/21/2017 17:31:Lesia Parks RN) History of PIH: No (01/21/2017 17:31:Lesia Parks RN) History of Incompetent Cervix: No (01/21/2017 17:31:Lesia Parks RN) History of Placenta Previa/Abrup: No (01/21/2017 17:31:Lesia Parks RN) History of Macrosomia: No (01/21/2017 17:31:Lesia Parks RN) History of IUGR: No (01/21/2017 17:31:Lesia Parks RN) History of Hemorrhage: No (01/21/2017 17:31:Lesia Parks RN) History of Loss/Stillborn: No (01/21/2017 17:31:Lesia Parks RN) History of : No (01/21/2017 17:31:Lesia Parks RN) History of D (Rh) Sensitization: No (01/21/2017 17:31:Lesia Parks RN) History Recurrent Loss/Stillborn: No (01/21/2017 17:31:Lesia Parks RN) History Depression/PP Depression: No (01/21/2017 17:31:Lesia Parks RN) History of Uterine Anomaly/MARCELO: No (01/21/2017 17:31:Lesia Parks RN) History of Infertility: No (01/21/2017 17:31:Lesia Parks RN) History of ART Treatment: No (01/21/2017 17:31:Lesia Parks RN) History of MARCELO: No (01/21/2017 17:31:Lesia Parks RN) Comments Obstetrical History: G1 - SAB 2014 G2 - Current (01/21/2017 17:31:Lesia Parks RN) MEDICAL HISTORY Med Hx Diabetes: No (01/21/2017 17:31:Lesia Parks RN) Med Hx Hypertension: No (01/21/2017 17:31:Lesia Parks RN) Med Hx Heart Disease: No (01/21/2017 17:31:Lesia Parks RN) Med Hx Autoimmune Disorder: No (01/21/2017 17:31:Lesia Parks RN) Med Hx Kidney Disease/UTI: No (01/21/2017 17:31:Lesia Parks RN) Med Hx Neurologic/Epilepsy: No (01/21/2017 17:31:Lesia Parks RN) Med Hx Psychiatric Disorders: No (01/21/2017 17:31:Lesia Parks RN) Med Hx Hepatitis/Liver Disease: No (01/21/2017 17:31:Lesia Parks RN) Med Hx Varicosities/Phlebitis: No (01/21/2017 17:31:Lesia Parks RN) Med Hx Thyroid Dysfunction: No (01/21/2017 17:31:Lesia Parks RN) Med Hx Trauma/Violence: No (01/21/2017 17:31:Lesia Parks RN) Med Hx Blood Transfusion: Yes (01/21/2017 17:31:Lesia Parks RN) Med Hx Pulmonary (Asthma,TB): No (01/21/2017 17:31:Lesia Parks RN) Med Hx Breast: No (01/21/2017 17:31:Lesia Parks RN) Med Hx FRONT OFFICE SPEC Surgery: No (01/21/2017 17:31:Lesia Parks RN) Med Hx Hospitalization/Surgery: Yes (01/21/2017 17:31:Lesia Parks RN) Med Hx Anesthetic Complications: No (01/21/2017 17:31:Lesia Parks RN) Med Hx Abnormal Pap Smear: No (01/21/2017 17:31:Lesia Parks RN) Other Medical Diseases: Yes (01/21/2017 17:31:Lesia Parks RN) Med Hx Significant Family Hx: No (01/21/2017 17:31:Lesia Parks RN) Details of Med/Surg Hx: Meningitis, Endometriosis, Pneumonia (01/21/2017 17:31:Lesia Parks RN) INFECTIOUS HISTORY Inf Hx Gonorrhea: No (01/21/2017 17:31:Lesia Parks RN) Inf Hx Chlamydia: No (01/21/2017 17:31:Lesia Parks RN) Inf Hx Syphilis: No (01/21/2017 17:31:Lesia Parks RN) Inf Hx HIV/AIDS: No (01/21/2017 17:31:Lesia Parks RN) Inf Hx Human Papilloma Virus: No (01/21/2017 17:31:Lesia Parks RN) Inf Hx Pt/Partner Genital Herpes: No (01/21/2017 17:31:Lesia Parks RN) Inf Hx Tuberculosis/Exposure: No (01/21/2017 17:31:Lesia Parks RN) Inf Hx Hepatitis B,C: No (01/21/2017 17:31:Lesia Parks RN) Inf Hx Rash or Viral Illness: No (01/21/2017 17:31:Lesia Parks RN) GENETIC HISTORY Gen Hx Age >=35 at MARIA E: No (01/21/2017 17:31:Lesia Parks RN) Gen Hx Thalassemia: No (01/21/2017 17:31:Lesia Parks RN) Gen Hx Congenital Heart Defect: No (01/21/2017 17:31:Lesia Parks RN) Gen Hx Neural Tube Defect: No (01/21/2017 17:31:Lesia Parks RN) Gen Hx Down's Syndrome: No (01/21/2017 17:31:Lesia Parks RN) Gen Hx Silvino-Sachs: No (01/21/2017 17:31:Lesia Parks RN) Gen Hx Natalie: No (01/21/2017 17:31:Lesia Parks RN) Gen Hx Familial Dysautonomia: No (01/21/2017 17:31:Lesia Parks RN) Gen Hx Sickle Cell Disease/Trait: Yes (01/21/2017 17:31:Lesia Parks RN) Gen Hx Hemophilia/Blood Disorder: No (01/21/2017 17:31:Lesia Parks RN) Gen Hx Muscular Dystrophy: No (01/21/2017 17:31:Lesia Parks RN) Gen Hx Cystic Fibrosis: No (01/21/2017 17:31:Lesia Parks RN) Gen Hx Huntingtons Chorea: No (01/21/2017 17:31:Lesia Parks RN) Gen Hx Mental Retardation/Autism: No (01/21/2017 17:31:Lesia Parks RN) Gen Hx Tested for Fragile X: No (01/21/2017 17:31:Lesia Parks RN) Gen Hx Other Inher/Chromosomal: No (01/21/2017 17:31:Lesia Parks RN) Gen Hx Maternal Metabolic DO: No (01/21/2017 17:31:Lesia Parks RN) Gen Hx Pt Father or FOB Defect: No (01/21/2017 17:31:Lesia Parks RN) Gen Hx Other Genetic History: No (01/21/2017 17:31:Lesia Parks RN) Gen Hx Drugs/Meds since LMP: No (01/21/2017 17:31:Lesia Parks RN) Details of Genetic History: Trait for sickle cell in family (01/21/2017 17:31:Lesia Parks RN)
--- NOTE | 2017-01-22 10:46 | L&D Current Admission ---
Current Admit Datetime Report Generated by CPN: 01/22/2017 10:45 ADMISSION INFORMATION Chief Complaint: Nausea; Vomiting (01/21/2017 17:20:Lesia Parks, JOSE CRUZ)
--- NOTE | 2017-01-22 10:46 | L&D Discharge Summary ---
OB Discharge Summary Datetime Report Generated by CPN: 01/22/2017 10:45 DISCHARGE DIAGNOSIS Diagnosis/Symptoms: Other Diagnoses/Symptoms Other: GERD Treatment/Procedures Other: Pepcid 20 mg, 1L D5LR Gestation: 33.6 Parity: 0 DIET/ACTIVITY/RESTRICTIONS Diet: Regular Activity: Normal Activity TEACHING/INSTRUCTIONS/REFERRALS Instructions Given To: Patient/ Instructions Understood: Patient Verbalized Understanding; Support Person Verbalized Understanding Referrals: None Educational Materials- Other: Kick Counts Dehydration DISCHARGE INFORMATION Discharged AMA: No Discharge Date/Time: 01/21/2017 18:45 Discharged To: Home Discharge Provider Name: A. Emmel CNM Accompanied By: Discharge Method: Ambulatory Condition: Stable FOLLOW UP INFORMATION Follow Up With: [facility] Follow Up On: 1 Week Follow Up Phone Number: [facility] - GENERAL INSTR-CALL PROVIDER IF: Contractions: Regular painful contractions every 5 minutes or less for one hour. Time your contractions from the beginning of one to the beginning of the next Pressure: Pressure in your vagina or lower abdomen that may feel like the baby is pushing down Gush of Fluid/Blood: Gush of fluid or blood from your vagina (it is normal to have spotting after vaginal exam or intercourse) Decreased Movement: Your baby is not moving as much as usual- 4 movements in 1 hour after drinking and resting on side Temperature: Temperature greater than 100.0(F) orally
--- NOTE | 2017-01-22 10:46 | Antepartum Discharge Summary ---
Antepartum DC Datetime Report Generated by CPN: 01/22/2017 10:45 DIET/ACTIVITY/RESTRICTIONS Diet: Regular (01/21/2017 18:45:Lesia Broman, RN) Activity: Normal Activity (01/21/2017 18:45:Lesia Broman, RN) TEACHING/INSTRUCTIONS/REFERRALS Instructions Given To: Patient/ (01/21/2017 18:45:Lesia Broman, RN) Instructions Understood: Patient Verbalized Understanding; Support Person Verbalized Understanding (01/21/2017 18:45:Lesia Broman, RN) Referrals: None (01/21/2017 18:45:Lesia Parks RN) Educational Materials- Other: Kick Counts Dehydration (01/21/2017 18:45:Lesia Parks RN) DISCHARGE INFORMATION Discharged AMA: No (01/21/2017 18:45:Lesia Parks RN) Discharge Date/Time: 01/21/2017 18:45 (01/21/2017 18:45:Lesia Parks RN) Discharged To: Home (01/21/2017 18:45:Lesia Parks RN) Discharge Provider Name: Karolina Tidwell CNM (01/21/2017 18:45:Lesia Parks RN) Accompanied By: (01/21/2017 18:45:Lesia Parks RN) Discharge Method: Ambulatory (01/21/2017 18:45:Lesia Parks RN) Condition: Stable (01/21/2017 18:45:Lesia Parks RN) FOLLOW UP INFORMATION Follow Up With: [facility] (01/21/2017 18:45:Lesia Parks RN) Follow Up On: 1 Week (01/21/2017 18:45:Lesia Parks RN) Follow Up Phone Number: [facility] - (01/21/2017 18:45:Lesia Parks RN) GENERAL INSTR-CALL PROVIDER IF: Contractions: Regular painful contractions every 5 minutes or less for one hour. Time your contractions from the beginning of one to the beginning of the next (01/21/2017 18:45:Lesia Parks RN) Pressure: Pressure in your vagina or lower abdomen that may feel like the baby is pushing down (01/21/2017 18:45:Lesia Parks RN) Gush of Fluid/Blood: Gush of fluid or blood from your vagina (it is normal to have spotting after vaginal exam or intercourse) (01/21/2017 18:45:Lesia Parks RN) Decreased Movement: Your baby is not moving as much as usual- 4 movements in 1 hour after drinking and resting on side (01/21/2017 18:45:Lesia Parks RN) Temperature: Temperature greater than 100.0(F) orally (01/21/2017 18:45:Lesia Parks RN) Urinary Output: Decreased urinary output or dark colored urine (01/21/2017 18:45:Lesia Parks RN)
== END 2017-01-21 18:45 | disposition home or self-care (01) ==
LOC: LC 16:18
PROVIDERS: ATTEND Obstetrics & Gynecology
PROC: 4A1HXCZ Monitoring of Products of Conception, Cardiac Rate, External Approach (ICD-10-PCS; principal; 2017-01-21)
DX: O99.613 Diseases of the digestive system complicating pregnancy, third trimester (principal); K21.9 Gastro-esophageal reflux disease without esophagitis; Z3A.33 33 weeks gestation of pregnancy
CPT/HCPCS: 59025; 82962; 81001; 80307; S0028

== ENCOUNTER 2017-02-09 16:04 | Inpatient (IN) | payer BC, MEDICAID ==
[~2017-02-09 16:04] MED LIST: LIDOCAINE 2% INJ-PF (20 MG/ML) 10 ML AMPUL ONE
[2017-02-09] MEDS ORDERED: PENICILLIN G-K 5 MILLION UNIT VIAL ONE (16:16)
[2017-02-09] MEDS ORDERED: FENTANYL/BUPIVACAINE/NS/PF 0 MCG/0 ML RTUINJ EPI ONE (16:19)
[2017-02-09] MEDS ORDERED: BUPIVACAINE HCL 0.25 % INJ/PF (2.5 MG/1 ML) 30 ML VIAL ONE (16:19)
[2017-02-09] MEDS ORDERED: EPHEDRINE SULFATE INJ 50 MG/1 ML AMPULE ONE (16:19)
[2017-02-09] MEDS ORDERED: LIDOCAINE 2% INJ-PF (20 MG/ML) 10 ML AMPUL ONE (16:20)
[2017-02-09] MEDS ORDERED: CEFAZOLIN 2 GM/D5W RTU 2 GM/50 ML RTUPB IV ONE (16:20)
[2017-02-09 16:34] LABS: ABSOLUTE LYMPHOCYTES (AUTO) 1.7 10^3/uL (0.5-4.7); ABSOLUTE MONOCYTES (AUTO) 0.6 10^3/uL (0.1-1.4); ABSOLUTE NEUT (AUTO) 4.7 10^3/uL (1.7-8.2); BASOPHILS % (AUTO) 0.4 % (0-2); EOSINOPHILS % (AUTO) 0.4 % (0-6); HEMATOCRIT 30.2 % (36.0-47.0); HEMOGLOBIN 9.6 g/dL (12.0-15.5); HGB HCT DIFFERENCE -1.4; LYMPHOCYTES % (AUTO) 24.1 % (13-45); MEAN CORPUSCULAR HEMOGLOBIN 26.1 pg (27.0-33.4); MEAN CORPUSCULAR HGB CONC 31.7 g/dL (32.0-36.0); MEAN CORPUSCULAR VOLUME 83 fl (80-97); MONOCYTES % (AUTO) 9.1 % (3-13); RED BLOOD COUNT 3.66 10^6/uL (3.72-5.28); RED CELL DISTRIBUTION WIDTH 14.9 % (11.5-14.0); WHITE BLOOD COUNT 7.1 10^3/uL (4.0-10.5)
[2017-02-09] MEDS ORDERED: OXYTOCIN/NORMAL SALINE 20 UNIT/1,000 ML RTUINJ ONE ×2 (16:54→17:28)
[2017-02-09] MEDS ORDERED: FENTANYL CITRATE INJ/PF 100 MCG/2 ML AMPUL ONE (16:54)
[2017-02-09] MEDS ORDERED: OXYTOCIN 10 UNIT/ML VIAL ONE (16:54)
[2017-02-09] MEDS ORDERED: MIDAZOLAM 2 MG/2 ML INJ ONE ×2 (16:55→18:36)
[2017-02-09] MEDS ORDERED: KETAMINE HCL INJ 500 MG/10 ML VIAL ONE (17:09)
[2017-02-09] MEDS ORDERED: MORPHINE SULFATE 10 MG/ML INJ ONE (17:10)
[2017-02-09] MEDS ORDERED: HYDROMORPHONE HCL INJ/PF 2 MG/ML AMPULE ONE ×2 (18:12→19:40)
[2017-02-09] MEDS ORDERED: ACETAMINOPHEN 100 ML IV ONE (18:13)
--- NOTE | 2017-02-09 18:16 | PDOC DELIVERY SUMMARY ---
Delivery Summary - Maternal Hx : II Hx Para: 0 Hx # Term Pregnancies: 0 Hx # Pregnancies: 0 Hx Total # of Abortions (Sponateous & Elective): 0 Number of Living Children: 0 MARIA E: 03/05/17 Gestational Age: 36+4 Risk Factors: Other - HPV, breech, Active labor Ruptured Membranes: AROM Time of Rupture: 16:57 Fluids: Clear - Delivery Labor: Precipitous-Less Than 3 Hours Presentation: Breech Heart Rate Monitoring: Done Pre-Operatively Uterine Contraction Monitoring: External Pattern: Other: Document in Pattern Other Pattern Other: decel after attempt at ECV. Support Person Present: Yes Location: OR : Emergency Placenta: Abnormal - calcifications Placenta Description: calcifications Number of Vessels (Cord): 3 Nuchal Cord: No Delivery of Placenta Date: 02/09/17 Delivery of Placenta Time: 17:01 - Medications Type of Anesthesia:: Epidural - Infant Assess and Care Female Delivery of Infant Date: 02/09/17 Delivery of Infant Time: 17:00 at 1 minute: 7 at 5 minutes: 9 Skin to Skin: No - mother in OR [facility] Person[facility] Nursery RN: LASHON MCINTYRE Nursery RN: MARIANA MELENDREZ MD: DIVYA WADE Medical Lab Technologist: MIKA CHANDRA
[2017-02-09] MEDS ORDERED: OXYCODONE-ACETAMINOPHEN 5-325 MG TABLET PO PRN (18:20)
[2017-02-09] MEDS ORDERED: SIMETHICONE 80 MG TAB.CHEW PO PRN (18:20)
[2017-02-09] MEDS ORDERED: DIPH/PERTUSS(ACELL)/TETANUS VAC/PF 0.5 ML SYR (>=10YO) IM PRN (18:20)
[2017-02-09] MEDS ORDERED: OXYTOCIN/NORMAL SALINE 1,000 ML IV PRN (18:20)
[2017-02-09] MEDS ORDERED: HYDROMORPHONE HCL INJ/PF 2 MG/ML AMPULE IV PRN (18:20)
[2017-02-09] MEDS ORDERED: MEASLES,MUMPS&RUBELLA VACC/PF 0.5 ML VIAL SUBCUT PRN (18:20)
[2017-02-09] MEDS ORDERED: PROMETHAZINE HCL INJ 25 MG/1 ML VIAL IV PRN (18:20)
[2017-02-09] MEDS ORDERED: ACETAMINOPHEN 325 MG TABLET PO PRN (18:20)
[2017-02-09] MEDS ORDERED: ACETAMINOPHEN 100 ML IV PRN (18:20)
--- NOTE | 2017-02-09 18:32 | Brief Operative Note ---
BRIEF OPERATIVE REPORT DATE OF SURGERY: 02/09/17 TIME OF SURGERY: 17:00 PREOPERATIVE DIAGNOSIS: , Breech, Active Labor, PUND at 36+4ega POSTOPERATIVE DIAGNOSIS: AMBROSIO - delivered. failed ECV SURGEON: DIVYA WADE FINDINGS: Normal tubes/ovaries. Normal uterus. Darrell breech presentation. Attempted ECV with failed forward roll and partially successful backward roll then baby reverted to breech. VFI delivered at 1700, Apgars 7/9, weight 6#11oz COMPLICATIONS: none ESTIMATED BLOOD LOSS: 600ml TISSUE REMOVED OR ALTERED: placenta and cord appears calcified TECHNICAL PROCEDURE: Attempted ECV, Primary LTCS
[2017-02-09] MEDS: KETOROLAC TROMETHAMINE INJ/PF 30 MG/1 ML SDV IV SCH (21:13)
[2017-02-09] MEDS ORDERED: ONDANSETRON HCL INJ/PF 4 MG/2 ML SDV ONE (22:58)
[2017-02-09] MEDS ORDERED: PROMETHAZINE HCL 25 MG SUPP.RECT PR PRN (23:14)
[2017-02-09] MEDS ORDERED: PROMETHAZINE HCL 25 MG TABLET PO PRN (23:14)
[2017-02-09] MEDS ORDERED: ONDANSETRON HCL INJ/PF 4 MG/2 ML SDV IV PRN (23:14)
[2017-02-10] MEDS: OXYCODONE-ACETAMINOPHEN 5-325 MG TABLET PO PRN ×4 (01:33→19:43)
[2017-02-10] MEDS: KETOROLAC TROMETHAMINE INJ/PF 30 MG/1 ML SDV IV SCH (05:18)
--- NOTE | 2017-02-10 05:54 | Operative Report ---
Operative Report DATE OF SURGERY: 02/09/17 PREOPERATIVE DIAGNOSIS: , Breech, Active Labor, PUND at 36+4ega POSTOPERATIVE DIAGNOSIS: AMBROSIO - delivered. failed ECV OPERATION: Attempted ECV, Primary LTCS SURGEON: DIVYA WADE ANESTHESIA: Epidural TISSUE REMOVED OR ALTERED: placenta and cord appears calcified COMPLICATIONS: None ESTIMATED BLOOD LOSS: 600ml INTRAOPERATIVE FINDINGS: Normal tubes/ovaries. Normal uterus. Darrell breech presentation. Attempted ECV with failed forward roll and partially successful backward roll then baby reverted to breech. VFI delivered at 1700, Apgars 7/9, weight 6#11oz PROCEDURE: PREOPERATIVE DIAGNOSIS: undelivered at [36+4] weeks, Active labor, Breech presentation, Membranes intact POSTOPERATIVE DIAGNOSIS: Same as above delivered Procedure: Primary LTCS Garment Sorter:[None] Anesthesia: Spinal Anesthesia provider: [Juanjose Aranda CRNA, Shania MARISCAL] Estimated blood loss: [600ml] Urine output: [200 mL, clear urine at conclusion of procedure] IV fluids: [1800 mL] Complications: [None, failed ECV] Specimens: [None] Findings: [Darrell breech presentation. Membranes intact. Attempted ECV with failed forward roll and partially successful backward roll then baby reverted to breech. Normal tubes/ovaries. Normal uterus. VFI delivered at 1700, Apgars 7/9, weight 6#11oz] Indications: [31-year-old at 36+4 weeks estimated gestational age who presented from the office via EMS due to breech presentation at 4 cm and suspected rupture in the office. On presentation to labor and delivery examination was performed and cervix noted to be 7 and completely effaced with both feet palpable through amniotic sac which was intact. Reviewed options with patient regarding possible attempt at external cephalic version versus proceeding to section. Reviewed with patient plan for epidural in the operating room with attempt at external cephalic version and if failed would proceed directly to section. She desires to attempt external cephalic version and if failed proceed to section. The risks benefits and alternatives were were reviewed with the patient and patient desires to proceed with planned procedure.] Procedure: The patient was taken to the operating room where epidural anesthesia was obtained anesthesia was obtained and found to be adequate. Ultrasound was performed to determine presentation and planned for external cephalic version. At this time forward roll was attempted 2 which failed. After failed forward roll and backward roll was attempted with partially successful backward roll and head ending in the right lower quadrant however head reverted to right upper abdomen and therefore reverted to breech presentation. At this time reviewed with the patient that external cephalic version was unsuccessful and recommended proceeding with section. She was then prepped and draped in the normal sterile fashion and placed in the dorsal supine position with a leftward tilt. A Pfannenstiel skin incision was then made and carried through to the underlying layers of the fascia with the scalpel. The fascia was incised in the midline and the incision extended laterally with the Stringer scissors. The superior aspect of the fascial incision was then grasped with Orient clamps elevated and the underlying rectus muscles dissected off [bluntly]. Attention was then turned to the inferior aspect of the fascial incision which in a similar fashion was grasped, tented up with Odalys clamps, and the rectus muscles dissected off [bluntly]. The rectus muscles were then in the midline and the peritoneum at the amount identified and entered [bluntly]. The peritoneal incision was then extended superiorly and inferiorly with good visualization of the bladder. The bladder blade was inserted and the vesicouterine peritoneum identified grasped with Cymraes pickups and entered sharply with the Metzenbaum scissors. This incision was then extended laterally with the Metzenbaum scissors and a bladder flap created digitally. The bladder blade was then reinserted and the lower uterine segment incised in a transverse fashion with the scalpel. The uterine incision was then extended bluntly. The bladder blade was removed and the infant was delivered from breech presentation atraumatically. The nose and mouth were suctioned and the cord doubly clamped and cut. And the infant was handed off to waiting pediatricians. The placenta was then delivered spontaneously and the uterus exteriorized and cleared of all clots and debris. The uterine incision was then repaired with 1- 0 Vicryl in a running locked fashion. A second layer of the same suture was used to obtain hemostasis via imbrication of the initial layer. The bladder flap was then repaired with 3-0 chromic in a running fashion. The uterus was returned to the patient's abdomen and Interceed was placed overlying the uterine incision to prevent adhesions. The gutters were cleared of all clots and debris. All operative sites were noted to be hemostatic. The rectus muscles were then reapproximated in the midline with 2-0 chromic in a running fashion. The fascia was reapproximated with 0 Vicryl in a running fashion from each lateral edge to the midline. The skin was closed with 3-0 Monocryl in a running subcuticular fashion with overlying Dermabond for additional dressing as well as wound closure. The patient tolerated the procedure well. Sponge lap needle and instrument counts are correct times 2. 2 g of Ancef were given prior to skin incision. The patient was taken to the recovery area awake and in stable condition.
[2017-02-10 07:05] LABS: HEMATOCRIT 27.3 % (36.0-47.0); HEMOGLOBIN 8.9 g/dL (12.0-15.5); HGB HCT DIFFERENCE -0.6; MEAN CORPUSCULAR HEMOGLOBIN 26.7 pg (27.0-33.4); MEAN CORPUSCULAR HGB CONC 32.7 g/dL (32.0-36.0); MEAN CORPUSCULAR VOLUME 82 fl (80-97); RED BLOOD COUNT 3.34 10^6/uL (3.72-5.28); WHITE BLOOD COUNT 10.4 10^3/uL (4.0-10.5)
[2017-02-10] MEDS: DOCUSATE SODIUM 100 MG CAPSULE PO SCH ×2 (09:52→17:12)
[2017-02-10] MEDS: PRENATAL VITAMIN W-O CA NO5/FE FUMARATE/FA CAPSULE PO SCH (09:52)
--- NOTE | 2017-02-10 10:17 | PDOC PROGRESS REPORT ---
Subjective-OB Subjective: Post Delivery Day: 31 year old. Denies any needs at this time Doing OK, hsb holding baby, no pain, no flatus, eating well, erazo taken out Physical Exam (OB) Vital Signs: Temp Pulse Resp BP Pulse Ox 98.1 F 80 16 138/71 H 99 02/10/17 09:01 02/10/17 09:01 02/10/17 09:01 02/10/17 09:01 02/10/17 09:01 Intake & Output 02/09/17 02/10/17 02/11/17 06:59 06:59 06:59 Intake Total 2280 Output Total 800 600 Balance 1480 -600 Weight 73.482 kg - PIH/Pre-Eclampsia DTR's: 2 + Clonus: Negative Epigastric Pain: No Visual Changes: No - Dressing Removed: No - dermabond Incision: Well Approximated Closure Type: Surgical Glue - Lochia Lochia Amount: Scant < 10 ml Lochia Color: Rubra/Red - Abdomen Description: Tender, Soft Hernia Present: No Fundal Description: Firm, Midline Fundal Height: u/u - u/2 Objective-Diagnostic Laboratory: 02/10/17 06:36 02/09/17 02/09/17 02/10/17 16:25 16:25 06:36 WBC 7.1 10.4 RBC 3.66 L 3.34 L Hgb 9.6 L 8.9 L Hct 30.2 L 27.3 L MCV 83 82 MCH 26.1 L 26.7 L MCHC 31.7 L 32.7 RDW 14.9 H 15.0 H Plt Count 159 150 Seg Neutrophils % 66.0 Lymphocytes % 24.1 Monocytes % 9.1 Eosinophils % 0.4 Basophils % 0.4 Absolute Neutrophils 4.7 Absolute Lymphocytes 1.7 Absolute Monocytes 0.6 Absolute Eosinophils 0.0 Absolute Basophils 0.0 Blood Type A POSITIVE Antibody Screen NEGATIVE Assessment and Plan(PN) - Assessment and Plan (1) Anemia Qualifiers: Anemia type: iron deficiency Is this a current diagnosis for this admission?: Yes (2) Obesity complicating Qualifiers: Trimester: first trimester Qualified Code(s): O99.211 - Obesity complicating , first trimester Is this a current diagnosis for this admission?: Yes (3) Migraines Qualifiers: Migraine type: unspecified Is this a current diagnosis for this admission?: Yes (4) delivery indicated due to breech presentation Is this a current diagnosis for this admission?: Yes - Time Spent with Patient Time with patient: Less than 15 minutes Smoking Education Provided: Over 3 minutes Medications reviewed and adjusted accordingly: Yes - Disposition Anticipated Discharge: Home Within: within 48 hours
--- NOTE | 2017-02-10 11:13 | Delivery Summary ---
Del Sum A-C Datetime Report Generated by CPN: 02/10/2017 11:12 DELIVERY PERSONNEL DELIVERY PERSONNEL: [id number] Delivery Doctor:: Keri Dumont MD Anesthesiologist:: Alex Jauregui MD LABORATORY MACHINIST:: Iron Burt CRNA Labor and Delivery Nurse:: Gita Costa RNsupervisor machine setter Nurse:: Brandee Bartholomew RN Neonatal Nurse Practitioner:: TIMOTHY Zuniga Nursery Nurse:: Kirsten Polk RN [place]/[facility] SPECIALIST: [facility] Moncia [place]/[facility] SPECIALIST: Kirsten Uribe WAX PUMPER MATERNAL INFORMATION Delivery Anesthesia: Epidural LABOR SUMMARY EDC: 03/05/2017 00:00 MEMBRANES Membranes Rupture Method: Artificial Rupture of Membranes: 02/09/2017 16:57 Length of Rupture (hr): 0.05 Amniotic Fluid Color: Clear Amniotic Fluid Amount: Moderate Amniotic Fluid Odor: Normal STAGES OF LABOR Stage 3 hr: 0 Stage 3 min: 1 VAGINAL DELIVERY Episiotomy: None Laceration Extension: N/A Laceration Type: None Laceration Repair: Not Applicable CSECTION DELIVERY Primary Indication: Breech Presentation CSection Urgency: Emergency CSection Incidence: Primary Labor: Labor Elective: Nonelective CSection Incision: Lower Uterine Transverse BABY A INFORMATION Delivery Date/Time: 02/09/2017 17:00 Method of Delivery: Born in Route : No : N/A Forceps: N/A Vacuum Extraction: N/A Shoulder Dystocia : No PRESENTATION/POSITION BABY A Presentation: Breech PLACENTA INFORMATION BABY A Placenta Delivery Time : 02/09/2017 17:01 Placenta Method of Delivery: Manual Removal Placenta Status: Delivered SCORES BABY A Heart Rate 1 min: >100 bpm Resp Effort 1 min: Absent Reflex Irritability 1 min: Cough or Sneeze or Pulls Away Muscle Tone 1 min: Active Motion Color 1 min: Body Lowgap, Extremities Blue SCORE 1 MIN: 7 Heart Rate 5 min: >100 bpm Resp Effort 5 min: Good Cry Reflex Irritability 5 min: Cough or Sneeze or Pulls Away Muscle Tone 5 min: Active Motion Color 5 min: Body Lowgap, Extremities Blue SCORE 5 MIN: 9 Resuscitation Effort 10 min: Tactile Stimulation; PPV/NCPAP INFANT INFORMATION BABY A Gestational Age at Delivery: 36.4 Gestational Status: Late - 34- 36.6 Weeks Infant Outcome : Liveborn Infant Condition : Stable Infant Sex: Female IDENTIFICATION BABY A ID Band Number: [id number] Mother's Name Verified: Yes Infant RN Verifying Infant: k artur rnc/a bartholomew rn WEIGHT/LENGTH BABY A Birthweight (gm): 3025 Weight (lb): 6 Weight (oz): 11 Length (in): 18.00 Infant Length (cm): 45.72 CORD INFORMATION BABY A No. Cord Vessels: 3 Nuchal Cord : N/A Cord Blood Taken: Yes-For Storage (Mom's Blood type +) Infant Suction: Mouth; Nose ASSESSMENT BABY A Skin to Skin: Yes Skin to Skin Time (min): 20
--- NOTE | 2017-02-10 11:13 | Admission Physical ---
Datetime Report Generated by CPN: 02/10/2017 11:13 CURRENT ADMISSION Hx Assessment: The History has been Reviewed and is Current Chief Complaint: Suspected Ruptured Membranes; Other Chief Complaint Other: sent in from office for advanced cervical dilation and breech presentation Indication for Induction: Not Applicable Admit Impression- Other: Admit for attempted ECV, will precede with c/s if necessary Admit Plan: Admit to Unit; Initiate Labor Protocol ALLERGIES Medication Allergies: No Medication Allergies: No Known Allergies (01/21/2017) Medication Allergies: No Known Allergies (12/21/2016) Medication Allergies: No Known Allergies (07/28/2016) Latex: No Latex Allergies OBSTETRICAL HISTORY EDC: 03/05/2017 00:00 : 2 Para: 0 Term: 0 : 0 SAB: 1 IAB: 0 Livin Gestational Diabetes: No Rh Sensitization: No Incompetent Cervix: No MARCELO: No Infertility: No ART Treatment: No Uterine Anomaly: No IUGR: No Hx Previous C/S: No Macrosomia: No Hx Loss/Stillborn: No PIH: No Hx : No Placenta Previa/Abruption: No Depression/PP Depression: No PTL/PROM: No Post Hemorrhage: No Current Procedures: Ultrasound; NST Obstetrical History Comments: G1 - 2013 G2 - Current SEE RECORDS Alcohol: No Marijuana : No Cocaine: No Other Illicit Drugs: No Cigarettes: Never Smoker. [id number] MEDICAL HISTORY Diabetes: No Blood Transfusion: Yes Pulmonary Disease (Asthma, TB): No Breast Disease: No Hypertension: No Etl Bi Developer Surgery: No Heart Disease: No Hosp/Surgery: Yes Autoimmune Disorder: No Anesthetic Complications: No Kidney Disease: No Abnormal Pap Smear: No Neuro/Epilepsy: No Psychiatric Disorders: No Other Medical Diseases: Yes Hepatitis/Liver Disease: No Significant Family History: No Varicosities/Phlebitis: No Trauma/Violence : No Thyroid Dysfunction: No Medical History Comments: Meningitis, Endometriosis, Pneumonia INFECTIOUS HISTORY Gonorrhea: No Genital Herpes: No Chlamydia: No Tuberculosis: No Syphilis: No Hepatitis: No HIV/AIDS Exposure: No Rash or Viral Illness: No HPV: No PHYSICAL EXAM General: Normal HEENT: Normal Neurologic: Normal Thyroid: Deferred Heart: Normal Lungs: Normal Breast: Normal Back: Normal Abdomen: Normal Genitourinary Exam: Normal Extremities: Normal DTRs: Normal Pelvic Type: Adequate Vital Signs: Reviewed VAGINAL EXAM Dilatation: 7 Effacement: 100 Station: -1 Contraction Comments: irregular MEMBRANES Membranes: Intact FETUS A Monitoring: External US FHR- Baseline: 130 Variability: Moderate 6-25bpm Decelerations: None FHR Category: Category I Estimated Weight (gm): 2800 Presentation: Vertex Admit Comment: Sent in from office, for advance cervical dilation with double footlinbg breech, ? SROM GBS unknown will do pcn admit to L _ D epidural plan for version and augmention, or c/s PLANS FOR LABOR AND DELIVERY Labor and Delivery: Other, Specify Pain Management: Epidural Feeding Preference: Breast Benefit of Breast Feed Discussed: Yes Circumcision: N/A INFORMED CONSENT Assignment: Keri Dumont MD Signature: with User ID: Nicholas : with User ID: [email or web address]
[2017-02-10] MEDS: IBUPROFEN 800 MG TABLET PO SCH ×2 (17:11→23:14)
[2017-02-11] MEDS: OXYCODONE-ACETAMINOPHEN 5-325 MG TABLET PO PRN (04:27)
[2017-02-11] MEDS: IBUPROFEN 800 MG TABLET PO SCH ×2 (05:00→13:17)
[2017-02-11] MEDS: PRENATAL VITAMIN W-O CA NO5/FE FUMARATE/FA CAPSULE PO SCH (09:40)
[2017-02-11] MEDS: DOCUSATE SODIUM 100 MG CAPSULE PO SCH (09:41)
--- NOTE | 2017-02-11 10:13 | PDOC DISCHARGE SUMMARY ---
Final Diagnosis Discharge Date: 02/11/17 - Final Diagnosis (1) Anemia Is this a current diagnosis for this admission?: Yes (2) delivery indicated due to breech presentation Is this a current diagnosis for this admission?: Yes Discharge Data - Discharge Medication Home Medications: Pedi Multivit #22/Vit D3/Vit K [Multivitamins Chewables Tablet] 2 each PO QHS Hydrocodone/Acetaminophen [[place] 5-325 Tablet] 1 tab PO Q6 PRN 02/10/17 Ranitidine HCl [Zantac 75 mg Tablet] 1 tab PO BID 02/10/17 Procedures: None Intrapartum Procedure(s): : Low Cervical, Transverse - Diagnosis Test Laboratory: Temp Pulse Resp BP Pulse Ox 98.3 F 83 15 104/80 100 02/11/17 08:49 02/11/17 08:49 02/11/17 08:49 02/11/17 08:49 02/11/17 08:49 02/09/17 02/10/17 16:25 06:36 RBC 3.66 L 3.34 L Hgb 9.6 L 8.9 L Hct 30.2 L 27.3 L - Discharge information/Instructions Discharge Activity: Activity As Tolerated, No Driving, No Lifting Over 10 Pounds , No Lifting/Push/Pulling, Pelvic Rest, No tub bath Discharge Diet: Regular Disposition: HOME, SELF-CARE Follow up with: [facility] in: 1
[2017-02-11 12:15] VITALS: BP 132/85
--- NOTE | 2017-02-15 23:40 | Admission Physical ---
Datetime Report Generated by CPN: 02/15/2017 23:40 CURRENT ADMISSION Hx Assessment: The History has been Reviewed and is Current Chief Complaint: Suspected Ruptured Membranes; Other Chief Complaint Other: sent in from office for advanced cervical dilation and breech presentation Indication for Induction: Not Applicable Admit Impression- Other: Admit for attempted ECV, will precede with c/s if necessary Admit Plan: Admit to Unit; Initiate Labor Protocol ALLERGIES Medication Allergies: No Medication Allergies: No Known Allergies (01/21/2017) Medication Allergies: No Known Allergies (12/21/2016) Medication Allergies: No Known Allergies (07/28/2016) Latex: No Latex Allergies OBSTETRICAL HISTORY EDC: 03/05/2017 00:00 : 2 Para: 0 Term: 0 : 0 SAB: 1 IAB: 0 Livin Gestational Diabetes: No Rh Sensitization: No Incompetent Cervix: No MARCELO: No Infertility: No ART Treatment: No Uterine Anomaly: No IUGR: No Hx Previous C/S: No Macrosomia: No Hx Loss/Stillborn: No PIH: No Hx : No Placenta Previa/Abruption: No Depression/PP Depression: No PTL/PROM: No Post Hemorrhage: No Current Procedures: Ultrasound; NST Obstetrical History Comments: G1 - 2013 G2 - Current SEE RECORDS Alcohol: No Marijuana : No Cocaine: No Other Illicit Drugs: No Cigarettes: Never Smoker. 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: No Heart Disease: No Hosp/Surgery: Yes Autoimmune Disorder: No Anesthetic Complications: No Kidney Disease: No Abnormal Pap Smear: No Neuro/Epilepsy: No Psychiatric Disorders: No Other Medical Diseases: Yes Hepatitis/Liver Disease: No Significant Family History: No Varicosities/Phlebitis: No Trauma/Violence : No Thyroid Dysfunction: No Medical History Comments: Meningitis, Endometriosis, Pneumonia INFECTIOUS HISTORY Gonorrhea: No Genital Herpes: No Chlamydia: No Tuberculosis: No Syphilis: No Hepatitis: No HIV/AIDS Exposure: No Rash or Viral Illness: No HPV: No PHYSICAL EXAM General: Normal HEENT: Normal Neurologic: Normal Thyroid: Deferred Heart: Normal Lungs: Normal Breast: Normal Back: Normal Abdomen: Normal Genitourinary Exam: Normal Extremities: Normal DTRs: Normal Pelvic Type: Adequate Vital Signs: Reviewed VAGINAL EXAM Dilatation: 7 Effacement: 100 Station: -1 Contraction Comments: irregular MEMBRANES Membranes: Intact FETUS A EGA: 36.4 Monitoring: External US FHR- Baseline: 130 Variability: Moderate 6-25bpm Decelerations: None FHR Category: Category I Estimated Weight (gm): 2800 Presentation: Vertex Admit Comment: Sent in from office, for advance cervical dilation with double footlinbg breech, ? SROM GBS unknown will do pcn admit to L _ D epidural plan for version and augmention, or c/s PLANS FOR LABOR AND DELIVERY Labor and Delivery: Other, Specify Pain Management: Epidural Feeding Preference: Breast Benefit of Breast Feed Discussed: Yes Circumcision: N/A INFORMED CONSENT Assignment: Keri Dumont MD Signature: with User ID: [email or web address] : with User ID: Nicholas
== END 2017-02-11 13:29 | disposition home or self-care (01) | DRG 765 ==
LOC: LR 16:04 → 2S 20:02
PROVIDERS: ADMIT Student in an Organized Health Care Education/Training Program; ATTEND Student in an Organized Health Care Education/Training Program
PROC: 10D00Z1 Extraction of Products of Conception, Low, Open Approach (ICD-10-PCS; principal; 2017-02-09)
PROC: 4A1HXCZ Monitoring of Products of Conception, Cardiac Rate, External Approach (ICD-10-PCS; 2017-02-09)
DX: O32.8XX0 Maternal care for other malpresentation of fetus, not applicable or unspecified (principal); O60.14X0 Preterm labor third trimester with preterm delivery third trimester, not applicable or unspecified; O99.354 Diseases of the nervous system complicating childbirth; G43.909 Migraine, unspecified, not intractable, without status migrainosus; O99.02 Anemia complicating childbirth; D50.9 Iron deficiency anemia, unspecified; O62.3 Precipitate labor; O99.214 Obesity complicating childbirth; E66.9 Obesity, unspecified; Z68.28 Body mass index [BMI] 28.0-28.9, adult; Z3A.36 36 weeks gestation of pregnancy; Z37.0 Single live birth
CPT/HCPCS: 1961; 36415; 85025; 85027; 86592; 86850; 86900; 86901; 88307; 94799; J0131; J0690; J1170; J1885; J2250; J2270; J2405; J2540; J2590; J3010; J3490

== ENCOUNTER 2017-02-16 11:53 | Inpatient (IN) | payer BC, MEDICAID ==
--- NOTE | 2017-02-16 12:05 | ER Document Report ---
ED Medical Screen (RME) - General Chief Complaint: Blood Pressure Problem Stated Complaint: TRAVEL OUTSIDE OF THE [place] IN LAST 30 DAYS: No - HPI Notes: 02/16/17 12:04 Patient coming in for possible preeclampsia. Patient has increased swelling headache elevated blood pressure. Otherwise healthy before did have hypertension during . Patient is currently breast and bottlefeeding. Vaginal no palpitations. Sent in by Dr. Elliott - Related Data Allergies/Adverse Reactions: No Known Allergies Allergy (Verified 02/16/17 11:59) Past Medical History - Past Medical History Cardiac Medical History: Denies: Hx Congestive Heart Failure, Hx Heart Attack, Hx Hypertension Pulmonary Medical History: Reports: Hx Pneumonia - long time ago Denies: Hx Asthma, Hx Bronchitis, Hx COPD, Hx Tuberculosis Neurological Medical History: Reports: Hx Migraine. Denies: Hx Seizures Renal/ Medical History: Denies: Hx End Stage Renal Disease, Hx Kidney Stones, Hx Peritoneal Dialysis GI Medical History: Reports: Hx Gastroesophageal Reflux Disease. Denies: Hx Cirrhosis, Hx Ulcer Musculoskeltal Medical History: Denies Hx Arthritis, Denies Hx Multiple Sclerosis Psychiatric Medical History: Denies: Hx Bipolar Disorder, Hx Depression, Hx Schizophrenia - Immunizations Hx Diphtheria, Pertussis, Tetanus Vaccination: Yes Review of Systems - Review of Systems Constitutional: Other - Eval preeclampsia Physical Exam - Vital signs Vitals: Temp Pulse Resp BP Pulse Ox 98.8 F 65 16 172/109 H 98 02/16/17 12:00 02/16/17 12:00 02/16/17 12:00 02/16/17 12:00 02/16/17 12:00 - Cardiovascular Rhythm: Regular Heart sounds: Normal auscultation Course - Vital Signs Vital signs: Temp Pulse Resp BP Pulse Ox 98.8 F 65 16 172/109 H 98 02/16/17 12:00 02/16/17 12:00 02/16/17 12:00 02/16/17 12:00 02/16/17 12:00
[2017-02-16 12:40] LABS: ABSOLUTE BASOPHILS # (AUTO) 0.1 10^3/uL (0.0-0.2); ABSOLUTE EOSINOPHILS # (AUTO) 0.1 10^3/uL (0.0-0.6); ABSOLUTE LYMPHOCYTES (AUTO) 1.5 10^3/uL (0.5-4.7); ABSOLUTE MONOCYTES (AUTO) 0.5 10^3/uL (0.1-1.4); ABSOLUTE NEUT (AUTO) 3.4 10^3/uL (1.7-8.2); BASOPHILS % (AUTO) 1.2 % (0-2); EOSINOPHILS % (AUTO) 2.7 % (0-6); HEMATOCRIT 33.1 % (36.0-47.0); HEMOGLOBIN 10.7 g/dL (12.0-15.5); MEAN CORPUSCULAR HEMOGLOBIN 26.5 pg (27.0-33.4); MEAN CORPUSCULAR HGB CONC 32.4 g/dL (32.0-36.0); MEAN CORPUSCULAR VOLUME 82 fl (80-97); MONOCYTES % (AUTO) 8.4 % (3-13); RED BLOOD COUNT 4.04 10^6/uL (3.72-5.28); RED CELL DISTRIBUTION WIDTH 15.3 % (11.5-14.0); SEGMENTED NEUTROPHILS % (AUTO) 60.7 % (42-78); WHITE BLOOD COUNT 5.6 10^3/uL (4.0-10.5)
--- NOTE | 2017-02-16 12:40 | ER Document Report ---
ED General - General Chief Complaint: Blood Pressure Problem Stated Complaint: BLOOD PRESSURE PROBLEM Mode of Arrival: Ambulatory Information source: Patient, Dr. Office Notes: 31 yr old female 7 days post delivery presents with complaints of headache blurry vision leg swelling and high blood pressure. pt has had intermittent hypertension TRAVEL OUTSIDE OF THE [place] IN LAST 30 DAYS: No - HPI Onset: This morning Onset/Duration: Sudden Quality of pain: Pressure Severity: Mild Pain Level: 2 Associated symptoms: Headache Exacerbated by: Denies Relieved by: Denies Similar symptoms previously: No Recently seen / treated by doctor: Yes - Related Data Allergies/Adverse Reactions: No Known Allergies Allergy (Verified 02/16/17 11:59) Past Medical History - Social History Smoking Status: Never Smoker Cigarette use (# per day): No Chew tobacco use (# tins/day): No Smoking Education Provided: No Family History: CAD, DM, Hyperlipidemia, Hypertension, Malignancy Patient has suicidal ideation: No Patient has homicidal ideation: No - Past Medical History Cardiac Medical History: Denies: Hx Congestive Heart Failure, Hx Heart Attack, Hx Hypertension Pulmonary Medical History: Reports: Hx Pneumonia - long time ago Denies: Hx Asthma, Hx Bronchitis, Hx COPD, Hx Tuberculosis Neurological Medical History: Reports: Hx Migraine. Denies: Hx Seizures Renal/ Medical History: Denies: Hx End Stage Renal Disease, Hx Kidney Stones, Hx Peritoneal Dialysis GI Medical History: Reports: Hx Gastroesophageal Reflux Disease. Denies: Hx Cirrhosis, Hx Ulcer Musculoskeltal Medical History: Denies Hx Arthritis, Denies Hx Multiple Sclerosis Psychiatric Medical History: Denies: Hx Bipolar Disorder, Hx Depression, Hx Schizophrenia - Immunizations Hx Diphtheria, Pertussis, Tetanus Vaccination: Yes Hx Pneumococcal Vaccination: 08/07/16 Review of Systems - Review of Systems Notes: PHYSICAL EXAMINATION: GENERAL: Well-appearing, well-nourished and in no acute distress. HEAD: Atraumatic, normocephalic. EYES: Pupils equal round and reactive to light, extraocular movements intact, conjunctiva are normal. ENT: Nares patent, oropharynx clear without exudates. Moist mucous membranes. NECK: Normal range of motion, supple without lymphadenopathy LUNGS: Breath sounds clear to auscultation bilaterally and equal. No wheezes rales or rhonchi. HEART: Regular rate and rhythm without murmurs ABDOMEN: Soft, Female : deferred Musculoskeletal: Normal range of motion, no pitting or edema. No cyanosis. NEUROLOGICAL: Cranial nerves grossly intact. Normal speech, normal gait. Normal sensory, motor exams PSYCH: Normal mood, normal affect. SKIN: Warm, Dry, normal turgor, no rashes or lesions noted. Physical Exam - Vital signs Vitals: Temp Pulse Resp BP Pulse Ox 98.8 F 65 16 172/109 H 98 02/16/17 12:00 02/16/17 12:00 02/16/17 12:00 02/16/17 12:00 02/16/17 12:00 Course - Re-evaluation Re-evalutation: 02/16/17 12:47 Patient instructed on risks and benefits of medications prescribed. Denies any concerns regarding such. Patient will be given hydralazine per Dr. Elliott, will send her to OB for magnesium and evaluation 02/16/17 12:49 - Vital Signs Vital signs: Temp Pulse Resp BP Pulse Ox 98.8 F 65 16 176/105 H 100 02/16/17 12:00 02/16/17 12:00 02/16/17 12:35 02/16/17 12:35 02/16/17 12:35 - Laboratory Result Diagrams: 02/16/17 12:15 02/16/17 12:15 Laboratory results interpreted by me: 02/16/17 02/16/17 12:15 12:15 Hgb 10.7 L Hct 33.1 L MCH 26.5 L RDW 15.3 H Urine Blood LARGE H Ur Leukocyte Esterase MODERATE H Critical Care Note - Critical Care Note Total time excluding time spent on procedures (mins): 35 Comments: minutes of critical care time spent in direct contact evaluating and reevaluating the patient, treating symptoms, reviewing labs and studies and speaking with family and consultants excluding any procedures Discharge - Discharge Clinical Impression: Blurry vision Preeclampsia Qualifiers: Trimester: unspecified trimester Qualified Code(s): O14.90 - Unspecified pre- eclampsia, unspecified trimester Headache Qualifiers: Headache type: other headache syndrome Qualified Code(s): G44.89 - Other headache syndrome Hypertension Qualifiers: Hypertension type: unspecified secondary hypertension Qualified Code(s): I15.9 - Secondary hypertension, unspecified Admitting Provider: [facility] Admitted: Post
[2017-02-16 12:41] LABS: APPEARANCE,URINE SLIGHTLY-CLOUDY; BILIRUBIN,URINE NEGATIVE (NEGATIVE); GLUCOSE, URINE NEGATIVE (NEGATIVE); KETONES,URINE NEGATIVE (NEGATIVE); LEUKOCYTE ESTERASE,URINE MODERATE (NEGATIVE); NITRITE,URINE NEGATIVE (NEGATIVE); PROTEIN,URINE NEGATIVE (NEGATIVE); URINE SPECIFIC GRAVITY 1.005; UROBILINOGEN,URINE NEGATIVE mg/dL (<2.0)
[2017-02-16] MEDS ORDERED: HYDRALAZINE HCL INJ/PF 20 MG/1 ML SDV IV ONE (12:42)
[2017-02-16 12:44] LABS: PROTHROMBIN TIME 12.4 SEC (11.4-15.4)
[2017-02-16 12:45] LABS: PARTIAL THROMBOPLASTIN TIME 31.5 SEC (23.5-35.8)
[2017-02-16 12:56] LABS: ALANINE AMINOTRANSFERASE 35 U/L (9-52); ALBUMIN 3.8 g/dL (3.5-5.0); ALKALINE PHOSPHATASE 110 U/L (38-126); ANION GAP 10 (5-19); ASPARTATE AMINO TRANSFERASE 40 U/L (14-36); BILIRUBIN,DIRECT 0.4 mg/dL (0.0-0.4); BILIRUBIN,TOTAL 0.7 mg/dL (0.2-1.3); BLOOD UREA NITROGEN 10 mg/dL (7-20); CALCIUM 9.8 mg/dL (8.4-10.2); CARBON DIOXIDE 27 mmol/L (22-30); CHLORIDE 105 mmol/L (98-107); CREATININE RESULT 0.64 mg/dL (0.52-1.25); GLUCOSE 77 mg/dL (75-110); LDH 1041 U/L (313-618); LIPASE 24.8 U/L (23-300); POTASSIUM 4.1 mmol/L (3.6-5.0); SODIUM 141.7 mmol/L (137-145); TOTAL PROTEIN 6.9 g/dL (6.3-8.2)
[2017-02-16] MEDS ORDERED: ACETAMINOPHEN 325 MG TABLET PO ONE (13:48)
[2017-02-16] MEDS ORDERED: MAGNESIUM SULFATE 4 GM/100 ML RTUPB IV ONE (14:59)
[2017-02-16] MEDS ORDERED: MAGNESIUM SULFATE/D5W 100 ML IV SCH ×2 (15:00)
[2017-02-16 16:23] LABS: URINE CREATININE 14.4 mg/dL (16-327); URINE PROTEIN 13.6 mg/dL (<12)
[2017-02-16] MEDS ORDERED: ACETAMINOPHEN WITH CODEINE #3 TABLET PO ONE (16:31)
[2017-02-16] MEDS ORDERED: ACETAMINOPHEN WITH CODEINE #3 TABLET ONE (16:35)
[2017-02-16] MEDS ORDERED: MAG HYDROX/AL HYDROX/SIMETH SUSP 30 ML UDCUP ONE (17:49)
[2017-02-16] MEDS ORDERED: MAG HYDROX/AL HYDROX/SIMETH SUSP 30 ML UDCUP PO ONE (18:30)
[2017-02-16] MEDS ORDERED: MAGNESIUM SULFATE 20 GM/500 ML RTUINJ IV PRN (18:31)
[2017-02-16] MEDS ORDERED: KETOROLAC TROMETHAMINE INJ/PF 30 MG/1 ML SDV IV ONE (18:39)
[2017-02-16] MEDS ORDERED: KETOROLAC TROMETHAMINE INJ/PF 30 MG/1 ML SDV ONE (18:48)
[2017-02-16] MEDS: RINGERS SOLUTION,LACTATED 1,000 ML IV PRN (19:01)
[2017-02-16 22:04] LABS: ABSOLUTE BASOPHILS # (AUTO) 0.1 10^3/uL (0.0-0.2); ABSOLUTE EOSINOPHILS # (AUTO) 0.1 10^3/uL (0.0-0.6); ABSOLUTE LYMPHOCYTES (AUTO) 1.7 10^3/uL (0.5-4.7); ABSOLUTE MONOCYTES (AUTO) 0.7 10^3/uL (0.1-1.4); ABSOLUTE NEUT (AUTO) 3.9 10^3/uL (1.7-8.2); BASOPHILS % (AUTO) 1.1 % (0-2); EOSINOPHILS % (AUTO) 2.1 % (0-6); HEMATOCRIT 31.8 % (36.0-47.0); HEMOGLOBIN 10.1 g/dL (12.0-15.5); HGB HCT DIFFERENCE -1.5; MEAN CORPUSCULAR HEMOGLOBIN 25.8 pg (27.0-33.4); MEAN CORPUSCULAR HGB CONC 31.6 g/dL (32.0-36.0); MEAN CORPUSCULAR VOLUME 82 fl (80-97); MONOCYTES % (AUTO) 11.4 % (3-13); RED BLOOD COUNT 3.89 10^6/uL (3.72-5.28); RED CELL DISTRIBUTION WIDTH 15.4 % (11.5-14.0); SEGMENTED NEUTROPHILS % (AUTO) 59.4 % (42-78); WHITE BLOOD COUNT 6.5 10^3/uL (4.0-10.5)
[2017-02-16] MEDS ORDERED: ZOLPIDEM TARTRATE 5 MG TABLET ONE (22:06)
[2017-02-16 22:25] LABS: ALANINE AMINOTRANSFERASE 31 U/L (9-52); ALBUMIN 3.2 g/dL (3.5-5.0); ALKALINE PHOSPHATASE 105 U/L (38-126); ANION GAP 11 (5-19); ASPARTATE AMINO TRANSFERASE 29 U/L (14-36); BILIRUBIN,DIRECT 0.2 mg/dL (0.0-0.4); BILIRUBIN,TOTAL 0.4 mg/dL (0.2-1.3); BLOOD UREA NITROGEN 10 mg/dL (7-20); CALCIUM 9.1 mg/dL (8.4-10.2); CARBON DIOXIDE 26 mmol/L (22-30); CHLORIDE 104 mmol/L (98-107); CREATININE RESULT 0.58 mg/dL (0.52-1.25); GLUCOSE 111 mg/dL (75-110); LDH 759 U/L (313-618); POTASSIUM 3.3 mmol/L (3.6-5.0); SODIUM 141.1 mmol/L (137-145); TOTAL PROTEIN 5.8 g/dL (6.3-8.2); URIC ACID 5.2 mg/dL (2.5-6.2)
[2017-02-17] MEDS: RINGERS SOLUTION,LACTATED 1,000 ML IV PRN (03:20)
[2017-02-17 06:21] LABS: ABSOLUTE EOSINOPHILS # (AUTO) 0.1 10^3/uL (0.0-0.6); ABSOLUTE LYMPHOCYTES (AUTO) 1.5 10^3/uL (0.5-4.7); ABSOLUTE MONOCYTES (AUTO) 0.6 10^3/uL (0.1-1.4); ABSOLUTE NEUT (AUTO) 3.5 10^3/uL (1.7-8.2); BASOPHILS % (AUTO) 0.7 % (0-2); HEMATOCRIT 32.6 % (36.0-47.0); HEMOGLOBIN 10.6 g/dL (12.0-15.5); HGB HCT DIFFERENCE -0.8; LYMPHOCYTES % (AUTO) 26.4 % (13-45); MEAN CORPUSCULAR HEMOGLOBIN 26.5 pg (27.0-33.4); MEAN CORPUSCULAR HGB CONC 32.5 g/dL (32.0-36.0); MEAN CORPUSCULAR VOLUME 81 fl (80-97); RED BLOOD COUNT 4.01 10^6/uL (3.72-5.28); RED CELL DISTRIBUTION WIDTH 15.4 % (11.5-14.0); SEGMENTED NEUTROPHILS % (AUTO) 60.9 % (42-78); WHITE BLOOD COUNT 5.8 10^3/uL (4.0-10.5)
[2017-02-17] MEDS ORDERED: ACETAMINOPHEN 325 MG TABLET PO PRN (06:32)
[2017-02-17 06:38] LABS: ALANINE AMINOTRANSFERASE 37 U/L (9-52); ALBUMIN 3.3 g/dL (3.5-5.0); ALKALINE PHOSPHATASE 106 U/L (38-126); ANION GAP 10 (5-19); ASPARTATE AMINO TRANSFERASE 26 U/L (14-36); BILIRUBIN,DIRECT 0.2 mg/dL (0.0-0.4); BILIRUBIN,TOTAL 0.4 mg/dL (0.2-1.3); BLOOD UREA NITROGEN 9 mg/dL (7-20); CALCIUM 8.7 mg/dL (8.4-10.2); CARBON DIOXIDE 27 mmol/L (22-30); CHLORIDE 104 mmol/L (98-107); CREATININE RESULT 0.65 mg/dL (0.52-1.25); GLUCOSE 81 mg/dL (75-110); LDH 782 U/L (313-618); POTASSIUM 3.8 mmol/L (3.6-5.0); SODIUM 140.7 mmol/L (137-145); TOTAL PROTEIN 5.9 g/dL (6.3-8.2); URIC ACID 5.2 mg/dL (2.5-6.2)
[2017-02-17] MEDS ORDERED: AMITRIPTYLINE HCL 25 MG TABLET PO SCH (08:00)
[2017-02-17] MEDS ORDERED: BUTALB/ACETAMINOPHEN/CAFFEINE 1 TAB EACH PO PRN ×2 (13:25→13:26)
--- NOTE | 2017-02-17 16:49 | PDOC PROGRESS REPORT ---
Subjective-OB Subjective: Post Delivery Day: 31 year old. Denies any needs at this time except she reports that she is having a migraine PANTOJA. she reports that she took Amitriptyline 25mg po daily for migraine prophy. she o/w is doing well. Physical Exam (OB) Vital Signs: Temp Pulse Resp BP Pulse Ox 98.8 F 106 H 17 128/61 H 98 02/17/17 11:47 02/17/17 11:47 02/17/17 11:47 02/17/17 11:47 02/17/17 11:47 - General General Appearance: Appears well, Alert, Sleeping/easily aroused In distress: None - PIH/Pre-Eclampsia DTR's: 1 + Clonus: Negative Headache: Present Epigastric Pain: No Visual Changes: No - Incision: Well Approximated - c/d/i Closure Type: Surgical Glue - Lochia Lochia Amount: Scant < 10 ml Lochia Color: Serosa/Brown - Abdomen Description: Soft Hernia Present: No Bowel Sounds: Normoactive Flatus Presence: Present Stool: Yes Fundal Description: Firm, Midline Abdomen Note: fundus approp for approx 1wks pp - HEENT Head: Normocephalic, Atraumatic Eyes: Normal - Respiratory Respiratory Status: No respiratory distress Chest Status: Nontender Breath sounds: Clear. negative: Rales, Rhonchi, Wheezing Chest Palpation: Normal - Cardiovascular Rhythm: Regular Heart Sounds: Normal auscultation, S1 appreciated, S2 appreciated - Abdominal Inspection: Normal Distension: No distension Tenderness: Nontender Organomegaly: No organomegaly - Extremities Upper extremity: Normal inspection Lower extremities: Normal inspection Calf: Normal, Nontender Ankle: Normal, Nontender Foot: Normal, Nontender - Neurological Cognition: Normal Orientation: AAOx4 Speech: Normal Sensory: Normal - Psychological Associated symptoms: Normal affect Objective-Diagnostic Laboratory: 02/17/17 05:59 02/17/17 05:59 02/16/17 02/16/17 02/17/17 21:56 21:56 05:59 WBC 6.5 5.8 RBC 3.89 4.01 Hgb 10.1 L 10.6 L Hct 31.8 L 32.6 L MCV 82 81 MCH 25.8 L 26.5 L MCHC 31.6 L 32.5 RDW 15.4 H 15.4 H Plt Count 260 264 Seg Neutrophils % 59.4 60.9 Lymphocytes % 26.0 26.4 Monocytes % 11.4 10.0 Eosinophils % 2.1 2.0 Basophils % 1.1 0.7 Absolute Neutrophils 3.9 3.5 Absolute Lymphocytes 1.7 1.5 Absolute Monocytes 0.7 0.6 Absolute Eosinophils 0.1 0.1 Absolute Basophils 0.1 0.0 Sodium 141.1 Potassium 3.3 L Chloride 104 Carbon Dioxide 26 Anion Gap 11 BUN 10 Creatinine 0.58 Est GFR ( Amer) > 60 Est GFR (Non-Af Amer) > 60 Glucose 111 H Uric Acid 5.2 Calcium 9.1 Total Bilirubin 0.4 AST 29 ALT 31 Alkaline Phosphatase 105 Total Protein 5.8 L Albumin 3.2 L 02/17/17 05:59 WBC RBC Hgb Hct MCV MCH MCHC RDW Plt Count Seg Neutrophils % Lymphocytes % Monocytes % Eosinophils % Basophils % Absolute Neutrophils Absolute Lymphocytes Absolute Monocytes Absolute Eosinophils Absolute Basophils Sodium 140.7 Potassium 3.8 Chloride 104 Carbon Dioxide 27 Anion Gap 10 BUN 9 Creatinine 0.65 Est GFR ( Amer) > 60 Est GFR (Non-Af Amer) > 60 Glucose 81 Uric Acid 5.2 Calcium 8.7 Total Bilirubin 0.4 AST 26 ALT 37 Alkaline Phosphatase 106 Total Protein 5.9 L Albumin 3.3 L Assessment and Plan(PN) - Assessment and Plan (1) Preeclampsia Qualifiers: Trimester: unspecified trimester Qualified Code(s): O14.90 - Unspecified pre-eclampsia, unspecified trimester Is this a current diagnosis for this admission?: YesPlan: Pt doing well. Will add fioricet today and then also add amitriptyline for prophy. Daily labs and may need procardia for BP control. Will continue to monitor. (2) delivery indicated due to breech presentation Is this a current diagnosis for this admission?: YesPlan: continue routine post op care - Time Spent with Patient Time with patient: Less than 15 minutes Medications reviewed and adjusted accordingly: Yes - Disposition Anticipated Discharge: Home Within: within 48 hours
[2017-02-17] MEDS: AMITRIPTYLINE HCL 25 MG TABLET PO SCH (20:06)
[2017-02-17] MEDS ORDERED: NIFEDIPINE 30 MG TAB.ER.24 PO ONE (23:45)
[2017-02-18 06:44] LABS: ABSOLUTE EOSINOPHILS # (AUTO) 0.1 10^3/uL (0.0-0.6); ABSOLUTE LYMPHOCYTES (AUTO) 1.7 10^3/uL (0.5-4.7); ABSOLUTE MONOCYTES (AUTO) 0.6 10^3/uL (0.1-1.4); ABSOLUTE NEUT (AUTO) 2.6 10^3/uL (1.7-8.2); BASOPHILS % (AUTO) 0.2 % (0-2); EOSINOPHILS % (AUTO) 1.7 % (0-6); HEMATOCRIT 31.2 % (36.0-47.0); HEMOGLOBIN 10.2 g/dL (12.0-15.5); HGB HCT DIFFERENCE -0.6; LYMPHOCYTES % (AUTO) 34.9 % (13-45); MEAN CORPUSCULAR HEMOGLOBIN 26.5 pg (27.0-33.4); MEAN CORPUSCULAR HGB CONC 32.6 g/dL (32.0-36.0); MEAN CORPUSCULAR VOLUME 81 fl (80-97); MONOCYTES % (AUTO) 11.2 % (3-13); RED BLOOD COUNT 3.85 10^6/uL (3.72-5.28); RED CELL DISTRIBUTION WIDTH 15.4 % (11.5-14.0)
[2017-02-18 07:01] LABS: ALANINE AMINOTRANSFERASE 34 U/L (9-52); ALBUMIN 3.3 g/dL (3.5-5.0); ALKALINE PHOSPHATASE 93 U/L (38-126); ANION GAP 8 (5-19); ASPARTATE AMINO TRANSFERASE 22 U/L (14-36); BILIRUBIN,DIRECT 0.2 mg/dL (0.0-0.4); BILIRUBIN,TOTAL 0.3 mg/dL (0.2-1.3); BLOOD UREA NITROGEN 9 mg/dL (7-20); CARBON DIOXIDE 27 mmol/L (22-30); CHLORIDE 107 mmol/L (98-107); CREATININE RESULT 0.65 mg/dL (0.52-1.25); GLUCOSE 87 mg/dL (75-110); POTASSIUM 4.3 mmol/L (3.6-5.0); SODIUM 142.4 mmol/L (137-145); TOTAL PROTEIN 5.7 g/dL (6.3-8.2); URIC ACID 4.6 mg/dL (2.5-6.2)
[2017-02-18] MEDS: NIFEDIPINE 30 MG TAB.ER.24 PO SCH (09:42)
[2017-02-18] MEDS ORDERED: IBUPROFEN 800 MG TABLET PO PRN (11:02)
--- NOTE | 2017-02-18 11:52 | PDOC PROGRESS REPORT ---
Subjective-OB Subjective: Post Delivery Day:10 31 year old s/p primary delivery re-admitted for eclampsia. Denies any needs at this time, reports headache finally improved overnight but coming back at this time. Reports minimal bleeding, swelling also improving. No other concerns. Physical Exam (OB) Vital Signs: Temp Pulse Resp BP Pulse Ox 98.7 F 79 16 126/91 H 96 02/18/17 07:55 02/18/17 07:55 02/18/17 07:55 02/18/17 07:55 02/18/17 07:55 - General General Appearance: Appears well In distress: None - PIH/Pre-Eclampsia DTR's: 1 + Clonus: Negative Headache: Present - mild at this time Epigastric Pain: No Visual Changes: No - Incision: Well Approximated - c/d/i Closure Type: Surgical Glue - Lochia Lochia Amount: Scant < 10 ml Lochia Color: Serosa/Brown - Abdomen Description: Soft Hernia Present: No Fundal Description: Firm, Midline - HEENT Head: Normocephalic - Respiratory Respiratory Status: No respiratory distress - Abdominal Inspection: Normal - Genitourinary Lochia: Mild - diminishing/brown - Extremities Upper extremity: Normal inspection Lower extremities: Edema - +1 bilateral - Neurological Cognition: Normal Orientation: AAOx4 - Psychological Associated symptoms: Normal affect, Normal mood - bonding well with baby, FOB also at bedside Objective-Diagnostic Laboratory: 02/18/17 06:13 02/18/17 06:13 02/18/17 02/18/17 06:13 06:13 WBC 5.0 RBC 3.85 Hgb 10.2 L Hct 31.2 L MCV 81 MCH 26.5 L MCHC 32.6 RDW 15.4 H Plt Count 248 Seg Neutrophils % 52.0 Lymphocytes % 34.9 Monocytes % 11.2 Eosinophils % 1.7 Basophils % 0.2 Absolute Neutrophils 2.6 Absolute Lymphocytes 1.7 Absolute Monocytes 0.6 Absolute Eosinophils 0.1 Absolute Basophils 0.0 Sodium 142.4 Potassium 4.3 Chloride 107 Carbon Dioxide 27 Anion Gap 8 BUN 9 Creatinine 0.65 Est GFR ( Amer) > 60 Est GFR (Non-Af Amer) > 60 Glucose 87 Uric Acid 4.6 Calcium 9.0 Total Bilirubin 0.3 AST 22 ALT 34 Alkaline Phosphatase 93 Total Protein 5.7 L Albumin 3.3 L Assessment and Plan(PN) - Assessment and Plan (1) Preeclampsia Qualifiers: Trimester: unspecified trimester Qualified Code(s): O14.90 - Unspecified pre-eclampsia, unspecified trimester Is this a current diagnosis for this admission?: YesPlan: Labs improved and BPs mild range since this AM. Will continue to monitor today and hope to d/c tomorrow if stable. Discuss plan with Dr. De La Garza who agrees. (2) delivery indicated due to breech presentation Is this a current diagnosis for this admission?: YesPlan: stable, continue stay anticipate d/c in the am - Time Spent with Patient Time with patient: 15-25 minutes Medications reviewed and adjusted accordingly: Yes - Disposition Anticipated Discharge: Home Within: within 24 hours
[2017-02-18] MEDS: AMITRIPTYLINE HCL 25 MG TABLET PO SCH (20:29)
[2017-02-19] MEDS: NIFEDIPINE 30 MG TAB.ER.24 PO SCH (09:31)
[2017-02-19 11:26] VITALS: BP 139/87
--- NOTE | 2017-04-08 17:29 | DISCHARGE SUMMARY E ---
Discharge Summary NAME: KAYY MENDOZA : 1985 AGE: 31Y ADMITTED: 02/16/2017 DISCHARGED: 02/19/2017 REASON FOR ADMISSION: 1. preeclampsia. 2. Hypertension. HISTORY OF PRESENT ILLNESS: See admission history and physical from February 16, 2017 for full details. HOSPITAL COURSE: The patient is admitted to the hospital to labor and delivery. She has PIH labs drawn which are within normal limits. Her blood pressures are elevated, and she is started on magnesium sulfate. See clinical notes for full details. She is continued on her magnesium sulfate for 24 hours, then discontinued. The patient's headaches have resolved. Her pressures are stabilized on p.o. hypertensives, specifically Procardia XL 30 mg. She is transferred to the women's surgical floor for another day of observation which her blood pressures continued to remain controlled on her p.o. hypertensives. Her PIH labs remain stable. On hospital day #2, the patient is in stable condition. Her PIG has resolved, and she is stable for discharge. DISCHARGE INSTRUCTIONS: Discharge the patient to home. Diet is regular. Activity is pelvic rest x6 weeks. SPECIAL INSTRUCTIONS: The patient is instructed to call MD if temperature greater than 100.5, heavy vaginal bleeding, or signs and symptoms of preeclampsia reoccur. Follow up interval is 1 week with the [facility]. MEDICATIONS AT DISCHARGE: Procardia XL 30 mg. DICTATING PHYSICIAN: Saman Zhu DO [id number] PHY#: [id number] ID: [id number] JOB#: [id number] ACCT: [id number] cc:Saman Zhu D.O. >
== END 2017-02-19 12:13 | disposition home or self-care (01) | DRG 776 ==
LOC: ER 11:53 → EH 13:49 → LR 13:49 → 2S 02-17 05:54
PROVIDERS: ADMIT Obstetrics & Gynecology; ATTEND Obstetrics & Gynecology
DX: O15.2 Eclampsia complicating the puerperium (principal); O99.355 Diseases of the nervous system complicating the puerperium; Z87.59 Personal history of other complications of pregnancy, childbirth and the puerperium; Z98.891 History of uterine scar from previous surgery; G43.909 Migraine, unspecified, not intractable, without status migrainosus
CPT/HCPCS: 36415; 80053; 81001; 82570; 83615; 83690; 84156; 84550; 84702; 85025; 85610; 85730; 96374; 99285; J0360; J1885; J3475; J3490